=== PATIENT | male | born 1935 | race Caucasian/White ===

== ENCOUNTER → 2016-11-05 | Outpatient (CLI) | payer MEDICARE | LOC: MW.CHUR 08:00 | DX: C61 Malignant neoplasm of prostate (principal) | CPT/HCPCS: 96372; J9217 ==

== ENCOUNTER 2017-10-09 07:52 | Emergency (ER) | payer MEDICARE ==
[2017-10-09] MEDS ORDERED: Sodium Chloride 0.9% 500 ML IV SCH (08:15)
[2017-10-09] MEDS ORDERED: Sodium Chloride 0.9% 10 ML Syringe FLUSH PRN (08:15)
[2017-10-09] MEDS ORDERED: Ondansetron 4 MG/2 ML SDV IVPUSH ONE (08:15)
[2017-10-09] MEDS ORDERED: Sodium Chloride 0.9% 2.5 ML Syringe FLUSH PRN (08:15)
[2017-10-09] MEDS ORDERED: Pantoprazole 40 MG Vial IVPUSH ONE (08:15)
--- NOTE | 2017-10-09 08:19 | EDM.PDOC ---
ED HPI GENERAL MEDICAL PROBLEM - General Chief Complaint: Abdominal Pain Stated Complaint: FEELING ILL Time Seen by Provider: 10/09/17 08:07 - History of Present Illness INITIAL COMMENTS - FREE TEXT/NARRATIVE: HISTORY AND PHYSICAL: History of present illness: The patient is an 82-year-old male who follows with Dr. Arcenio Dennis at [facility] and has a history of diabetes hypothyroidism hypertension and presents with his with complaints of some small volume diarrhea that started yesterday morning and that improved with Imodium but then returned again this morning. According to and patient and he had small "squirts" of nava colored diarrhea but she gave him Imodium and he seemed to get better throughout the rest of the day yesterday. He slept fine and this morning at 4 AM he had several episodes again of the watery diarrhea which was small volume and they tell me it was not black or bloody. The patient now says that he has a "acid stomach" and he feels nauseated. He points to the epigastric and mid abdominal area as the site of his discomfort. He has no chest pain or shortness of breath no flank pain no urinary complaints. He has not vomited and he has not had any new food or exotic travel. Patient has a history of a bleeding ulcer back in the 1970s for which she had have surgery and he has an umbilical hernia which she has not had repaired. Patient says that since that time he has not had issues with ulcers and is on no medication for that. The tells me that he had some similar symptoms of an upset stomach and an acid stomach last month and he was seen at [facility] and he did a three-day Hemoccult testing which was negative and his hemoglobin was 11. No further testing was performed at that time. Review of systems: As per history of present illness and below otherwise all systems reviewed and negative. Past medical history: As per history of present illness and as reviewed below otherwise noncontributory. Surgical history: As per history of present illness and as reviewed below otherwise noncontributory. Social history: No reported history of drug or alcohol abuse. Family history: As per history of present illness and as reviewed below otherwise noncontributory. Physical exam: General: Well-developed well-nourished elderly man who is nontoxic and vital signs of been reviewed by me. Patient ambulated into the ED without distress HEENT: Atraumatic, normocephalic, pupils reactive, negative for conjunctival pallor or scleral icterus, mucous membranes moist, throat clear, neck supple, nontender, trachea midline. Lungs: Clear to auscultation, breath sounds equal bilaterally, chest nontender. Heart: S1S2, regular, negative for clicks, rubs, or JVD. Abdomen: Soft, nondistended, minimal epigastric tenderness on deep palpation without rebound or guarding. There is a large midline well-healed abdominal scar with a soft reducible umbilical hernia that is nontender. Bowel sounds are slightly hyperactive Negative for masses or hepatosplenomegaly. Negative for costovertebral tenderness. Pelvis: Stable nontender. Genitourinary: Deferred. Rectal: No masses were appreciated and there was scant stool in the vault so only mucus was tested and it was Hemoccult negative. I will have nursing state any diarrhea that the patient produces Extremities: Atraumatic, negative for cords or calf pain. Neurovascular unremarkable. Neuro: Awake, alert, oriented. Cranial nerves II through XII unremarkable. Cerebellum unremarkable. Motor and sensory unremarkable throughout. Exam nonfocal. Diagnostics: EKG CBC CMP amylase lipase INR UA H pylori testing CT scan of the abdomen and pelvis Therapeutics: Gentle IV fluids Protonix Zofran Patient states that he is feeling much improved and I discussed with him and his at bedside all testing results. I've gone over the positive H. pylori and the need for triple therapy with antibiotics and a PPI. I've also discussed with them the kidney stones most specifically the kidney stone Complex on the right side and the need to follow-up with Dr. Luis, whom he has has seen in the past. I advised him for close follow-up with his provider Dr. Monsivais in the clinic and reasons to return to the ED. Impression: Abdominal pain/H. pylori; incidental kidney stones stable Definitive disposition and diagnosis as appropriate pending reevaluation and review of above. Upper Abdomen Pain Score (Numeric/FACES): 3 - Related Data Allergies Allergy/AdvReac Type Severity Reaction Status Date / Time codeine Allergy Nausea and Verified 03/04/14 15:58 Vomiting Home Meds: Home Meds Aspirin [Alyse Chewable] 81 mg PO BEDTIME 03/04/14 [History] Lisinopril 2.5 mg PO DAILY 03/04/14 [History] metFORMIN [metFORMIN XR] 250 mg PO DAILY 03/04/14 [History] Past Medical History - Past Health History Medical/Surgical History: Denies Medical/Surgical History Social & Family History - Tobacco Use Smoking Status *Q: Never Smoker Second Hand Smoke Exposure: No - Alcohol Use Days Per Week of Alcohol Use: 0 - Recreational Drug Use Recreational Drug Use: No ED ROS GENERAL - Review of Systems Review Of Systems: ROS reveals no pertinent complaints other than HPI. ED EXAM, GENERAL - Physical Exam Exam: See Below (See dictation) Course - Vital Signs Last Recorded V/S: Last Vital Signs Temp 37.1 C 10/09/17 08:13 Pulse 74 10/09/17 08:13 Resp 18 10/09/17 08:13 BP 103/70 10/09/17 08:13 Pulse Ox 94 L 10/09/17 08:14 - Orders/Labs/Meds Orders: Active Orders 24 hr Category Date Time Status Cardiac Monitoring [RC] . DIRECTED Care 10/09/17 08:14 Active EKG Documentation Completion [RC] STAT Care 10/09/17 08:14 Active Hemoccult [Fecal Occult Blood Collection] [RC] Care 10/09/17 09:02 Active ASDIRECTED Oxygen Therapy, ED [RC] ASDIRECTED Care 10/09/17 08:14 Active Pulse Oximetry [RC] ASDIRECTED Care 10/09/17 08:14 Active Abdomen Pelvis w Cont [CT] Stat Exams 10/09/17 08:15 Taken Sodium Chloride 0.9% [Normal Saline] 500 ml Med 10/09/17 08:15 Active IV STAT Sodium Chloride 0.9% [Saline Flush] Med 10/09/17 08:15 Active 10 ml FLUSH ASDIRECTED PRN Sodium Chloride 0.9% [Saline Flush] Med 10/09/17 08:15 Active 2.5 ml FLUSH ASDIRECTED PRN Saline Lock Insert [OM.PC] Stat Oth 10/09/17 08:14 Ordered Medication Orders Sodium Chloride (Normal Saline) 500 mls @ 999 mls/hr IV STAT JEREMY Last Admin: 10/09/17 08:32 Dose: 999 mls/hr Sodium Chloride (Saline Flush) 10 ml FLUSH ASDIRECTED PRN PRN Reason: Keep Vein Open Last Admin: 10/09/17 08:33 Dose: 10 ml Sodium Chloride (Saline Flush) 2.5 ml FLUSH ASDIRECTED PRN PRN Reason: Keep Vein Open Last Admin: 10/09/17 08:33 Dose: 2.5 ml Labs: Laboratory Tests 10/09/17 10/09/17 10/09/17 Range/Units 08:27 08:27 08:27 WBC 13.52 H (4.0-11.0) K/uL RBC 4.37 L (4.50-5.90) M/uL Hgb 13.4 (13.0-17.0) g/dL Hct 41.3 (38.0-50.0) % MCV 94.5 (80.0-98.0) fL MCH 30.7 (27.0-32.0) pg MCHC 32.4 (31.0-37.0) g/dL RDW Std Deviation 49.4 (28.0-62.0) fl RDW Coeff of [place] 14 (11.0-15.0) % Plt Count 226 (150-400) K/uL MPV 9.00 (7.40-12.00) fL Neut % (Auto) 82.8 H (48.0-80.0) % Lymph % (Auto) 8.6 L (16.0-40.0) % [place] % (Auto) 6.7 (0.0-15.0) % Eos % (Auto) 1.7 (0.0-7.0) % Baso % (Auto) 0.2 (0.0-1.5) % Neut # (Auto) 11.2 H (1.4-5.7) K/uL Lymph # (Auto) 1.2 (0.6-2.4) K/uL [place] # (Auto) 0.9 H (0.0-0.8) K/uL Eos # (Auto) 0.2 (0.0-0.7) K/uL Baso # (Auto) 0.0 (0.0-0.1) K/uL Nucleated RBC % 0.0 /100WBC Nucleated RBCs # 0 K/uL INR 1.06 Sodium 143 (136-146) mmol/L Potassium 4.2 (3.5-5.1) mmol/L Chloride 113 H (98-110) mmol/L Carbon Dioxide 21 (21-31) mmol/L BUN 32 H (6.0-23.0) mg/dL Creatinine 1.1 (0.6-1.5) mg/dL Est Cr Clr Drug Dosing 50.09 mL/min Estimated GFR (MDRD) > 60.0 ml/min Glucose 144 H (60-110) mg/dL Calcium 9.1 (8.8-10.8) mg/dL Total Bilirubin 0.5 (0.1-1.5) mg/dL AST 15 (5-40) IU/L ALT 20 (8-54) IU/L Alkaline Phosphatase 68 (40-150) Total Protein 6.8 (6.0-8.0) g/dL Albumin 4.0 (3.4-4.8) g/dL Globulin 2.8 (2.0-3.5) g/dL Albumin/Globulin Ratio 1.4 (1.3-2.8) Amylase 33 (10-90) U/L Lipase 15 (7-80) U/L Urine Color Urine Appearance Urine pH (5.0-8.0) Ur Specific [place] (1.001-1.035) Urine Protein (NEGATIVE) mg/dL Urine Glucose (UA) (NEGATIVE) mg/dL Urine Ketones (NEGATIVE) mg/dL Urine Occult Blood (NEGATIVE) Urine Nitrite (NEGATIVE) Urine Bilirubin (NEGATIVE) Urine Urobilinogen (<2.0) EU/dL Ur Leukocyte Esterase (NEGATIVE) Urine RBC (0-2/HPF) Urine WBC (0-5/HPF) Ur Epithelial Cells (NONE-FEW) Urine Bacteria (NEGATIVE) Urine Mucus (NONE-MOD) H. pylori IgG Antibody (NEG) 10/09/17 10/09/17 Range/Units 08:27 09:58 WBC (4.0-11.0) K/uL RBC (4.50-5.90) M/uL Hgb (13.0-17.0) g/dL Hct (38.0-50.0) % MCV (80.0-98.0) fL MCH (27.0-32.0) pg MCHC (31.0-37.0) g/dL RDW Std Deviation (28.0-62.0) fl RDW Coeff of [place] (11.0-15.0) % Plt Count (150-400) K/uL MPV (7.40-12.00) fL Neut % (Auto) (48.0-80.0) % Lymph % (Auto) (16.0-40.0) % [place] % (Auto) (0.0-15.0) % Eos % (Auto) (0.0-7.0) % Baso % (Auto) (0.0-1.5) % Neut # (Auto) (1.4-5.7) K/uL Lymph # (Auto) (0.6-2.4) K/uL [place] # (Auto) (0.0-0.8) K/uL Eos # (Auto) (0.0-0.7) K/uL Baso # (Auto) (0.0-0.1) K/uL Nucleated RBC % /100WBC Nucleated RBCs # K/uL INR Sodium (136-146) mmol/L Potassium (3.5-5.1) mmol/L Chloride (98-110) mmol/L Carbon Dioxide (21-31) mmol/L BUN (6.0-23.0) mg/dL Creatinine (0.6-1.5) mg/dL Est Cr Clr Drug Dosing mL/min Estimated GFR (MDRD) ml/min Glucose (60-110) mg/dL Calcium (8.8-10.8) mg/dL Total Bilirubin (0.1-1.5) mg/dL AST (5-40) IU/L ALT (8-54) IU/L Alkaline Phosphatase (40-150) Total Protein (6.0-8.0) g/dL Albumin (3.4-4.8) g/dL Globulin (2.0-3.5) g/dL Albumin/Globulin Ratio (1.3-2.8) Amylase (10-90) U/L Lipase (7-80) U/L Urine Color DARK YELLOW Urine Appearance CLEAR Urine pH 5.5 (5.0-8.0) Ur Specific [place] 1.025 (1.001-1.035) Urine Protein NEGATIVE (NEGATIVE) mg/dL Urine Glucose (UA) NEGATIVE (NEGATIVE) mg/dL Urine Ketones NEGATIVE (NEGATIVE) mg/dL Urine Occult Blood NEGATIVE (NEGATIVE) Urine Nitrite NEGATIVE (NEGATIVE) Urine Bilirubin NEGATIVE (NEGATIVE) Urine Urobilinogen 0.2 (<2.0) EU/dL Ur Leukocyte Esterase NEGATIVE (NEGATIVE) Urine RBC 0-2 (0-2/HPF) Urine WBC 0-2 (0-5/HPF) Ur Epithelial Cells OCCASIONAL (NONE-FEW) Urine Bacteria FEW (NEGATIVE) Urine Mucus MODERATE (NONE-MOD) H. pylori IgG Antibody POSITIVE H (NEG) Meds: Medications Generic Name Dose Route Start Last Admin Trade Name Freq PRN Reason Stop Dose Admin Sodium Chloride 500 mls @ 999 mls/hr 10/09/17 08:15 10/09/17 08:32 Normal Saline IV 999 mls/hr STAT JEREMY Administration Sodium Chloride 10 ml 10/09/17 08:15 10/09/17 08:33 Saline Flush FLUSH 10 ml ASDIRECTED PRN Administration Keep Vein Open Sodium Chloride 2.5 ml 10/09/17 08:15 10/09/17 08:33 Saline Flush FLUSH 2.5 ml ASDIRECTED PRN Administration Keep Vein Open Discontinued Medications Generic Name Dose Route Start Last Admin Trade Name Freq PRN Reason Stop Dose Admin Iopamidol 95 ml 10/09/17 09:09 10/09/17 09:11 Isovue Multipack-370 (76%) IVPUSH 10/09/17 09:10 95 ml ONETIME STA Administration Ondansetron HCl 4 mg 10/09/17 08:15 10/09/17 08:32 Zofran IVPUSH 10/09/17 08:16 4 mg ONETIME ONE Administration Pantoprazole Sodium 80 mg 10/09/17 08:15 10/09/17 08:32 Protonix Iv IVPUSH 10/09/17 08:16 80 mg .BOLUS ONE Administration Departure - Departure Time of Disposition: 10:44 Disposition: Home, Self-Care 01 Condition: Good Clinical Impression: H. pylori infection Abdominal pain Qualifiers: Abdominal location: upper abdomen, unspecified Qualified Code(s): R10.10 - Upper abdominal pain, unspecified - Discharge Information Referrals: Arcenio Monsivais MD [Primary Care Provider] - Forms: ED Department Discharge Additional Instructions: The following information is given to patients seen in the emergency department who are being discharged to home. This information is to outline your options for follow-up care. We provide all patients seen in our emergency department with a follow-up referral. The need for follow-up, as well as the timing and circumstances, are variable depending upon the specifics of your emergency department visit. If you don't have a primary care physician on staff, we will provide you with a referral. We always advise you to contact your personal physician following an emergency department visit to inform them of the circumstance of the visit and for follow-up with them and/or the need for any referrals to a consulting specialist. The emergency department will also refer you to a specialist when appropriate. This referral assures that you have the opportunity for followup care with a specialist. All of these measure are taken in an effort to provide you with optimal care, which includes your followup. Under all circumstances we always encourage you to contact your private physician who remains a resource for coordinating your care. When calling for followup care, please make the office aware that this follow-up is from your recent emergency room visit. If for any reason you are refused follow-up, please contact the [facility] emergency department at and ask to speak to the emergency department charge nurse. [address] [address] [facility] Primary care- Internal Medicine and Family [facility]ctice [address] [place] [id number] [facility] Specialty Care-Urology [address] [place] [id number] Please call and follow-up with Dr. Monsivais this week for reevaluation further care and if you're unable to see him please contact one of our clinic providers. Please also contact and make a follow-up appointment with Dr. Luis to reevaluate and treat your kidney stones as we discussed. Return to ER as needed and as discussed. Please take all medications as prescribed and avoid caffeinated products. - My Orders Last 24 Hours: My Active Orders 10/09/17 08:14 Cardiac Monitoring [RC] . DIRECTED EKG Documentation Completion [RC] STAT Oxygen Therapy, ED [RC] ASDIRECTED Pulse Oximetry [RC] ASDIRECTED Saline Lock Insert [OM.PC] Stat 10/09/17 08:15 Abdomen Pelvis w Cont [CT] Stat Sodium Chloride 0.9% [Normal Saline] 500 ml IV STAT Sodium Chloride 0.9% [Saline Flush] 10 ml FLUSH ASDIRECTED PRN Sodium Chloride 0.9% [Saline Flush] 2.5 ml FLUSH ASDIRECTED PRN 10/09/17 09:02 Hemoccult [Fecal Occult Blood Collection] [RC] ASDIRECTED - Assessment/Plan Last 24 Hours: My Active Orders 10/09/17 08:14 Cardiac Monitoring [RC] . DIRECTED EKG Documentation Completion [RC] STAT Oxygen Therapy, ED [RC] ASDIRECTED Pulse Oximetry [RC] ASDIRECTED Saline Lock Insert [OM.PC] Stat 10/09/17 08:15 Abdomen Pelvis w Cont [CT] Stat Sodium Chloride 0.9% [Normal Saline] 500 ml IV STAT Sodium Chloride 0.9% [Saline Flush] 10 ml FLUSH ASDIRECTED PRN Sodium Chloride 0.9% [Saline Flush] 2.5 ml FLUSH ASDIRECTED PRN 10/09/17 09:02 Hemoccult [Fecal Occult Blood Collection] [RC] ASDIRECTED
[2017-10-09 09:01] LABS: CHLORIDE,CL 113 mmol/L (98-110); SODIUM,NA 143 mmol/L (136-146)
[2017-10-09] MEDS ORDERED: Iopamidol 755 MG/ML 200 ML Multipack Bottle IVPUSH STA (09:09)
--- NOTE | 2017-10-11 14:03 | CT ---
EXAM DATE: 10/09/17 PATIENT'S AGE: 82 Patient: MARCI KWOK Facility: [place], [place] Site . Site : [id number] Study: CT Abdomen/Pelvis [id number]/3/2018 9:52:12 AM Ordering Physician: Murtaza Chase Final Report: INDICATION: Abdominal pain. COMPARISON: CT abdomen and pelvis without intravenous contrast 07/31/2014. TECHNIQUE: CT abdomen and pelvis with intravenous contrast; no oral contrast; coronal and sagittal reformats. FINDINGS: Fibrotic changes both lung bases stable in appearance. Normal size cardiac silhouette without any evidence of pericardial effusion. No evidence of pleural effusion. No abnormal intra pulmonary nodular densities are identified. No focal hepatic or splenic pathology. 1 cm low density identified in the tail of the pancreas as noted on slice 34 of series 201; rule out IPMN. This finding was probably present on the previous CT. MRCP is suggested for further evaluation. Gallbladder is unremarkable. No adrenal pathology. Symmetric perfusion of both the kidneys. Peripelvic cysts identified in the left kidney. Small cyst right kidney. Tiny nonobstructing renal calculi lower pole calyx left kidney without any interval change. Previously noted kidney stone in the right mid posterior calyx is not seen on the current study. 6.8 x 4 mm stone complex identified in the right distal ureter about 2 cm from the ureterovesical junction without any hydronephrosis or hydroureter at this time. Diverticulosis sigmoid colon without any CT evidence of diverticulitis or abscess. No retroperitoneal lymphadenopathy. No evidence of abdominal or pelvic ascites. Normal appendix. Splenic vein, superior mesenteric vein and the portal vein are unremarkable. Impression: 6.8 x 4 mm stone complex identified in the right distal ureter 2 cm from the ureterovesical junction without any hydronephrosis or hydroureter. 1. Previously noted stone from the right kidney is probably in the right distal ureter at this time. 2. There was a small stone in the right distal ureter on the previous study and it probably still is present. 3. Nonobstructing renal calculi left kidney. 4. Benign cyst right kidney. 5. Small peripelvic cyst left kidney. 6. 1 cm low-density tail of the pancreas; rule out IPMN. Please note that all CT scans at this facility use dose modulation, iterative reconstruction, and/or weight-based dosing when appropriate to reduce radiation dose to as low as reasonably achievable. Dictated by Lorena Maravilla MD @ Oct 09 2017 9:53AM (Electronic Signature) Report Signed by Proxy. MTDD
== END 2017-10-09 11:06 | disposition home or self-care (01) ==
LOC: MW.ED 07:52
DX: R10.10 Upper abdominal pain, unspecified (principal); B96.81 Helicobacter pylori [H. pylori] as the cause of diseases classified elsewhere; I10 Essential (primary) hypertension; E03.9 Hypothyroidism, unspecified; E11.9 Type 2 diabetes mellitus without complications; Z88.5 Allergy status to narcotic agent; Z79.84 Long term (current) use of oral hypoglycemic drugs; Z79.899 Other long term (current) drug therapy
CPT/HCPCS: 36415; 74177; 80053; 81001; 82150; 83690; 85025; 85610; 86677; 93005; 96361; 96374; 96375; 99284; C9113; J2405; J7040; Q9967

== ENCOUNTER 2019-05-17 09:54 | Observation (INO) | payer MEDICARE ==
[2019-05-17] MEDS ORDERED: Sodium Chloride 0.9% 10 ML SDV IV PRN (09:56)
[2019-05-17] MEDS ORDERED: Sodium Chloride 0.9% 10 ML Syringe FLUSH PRN (09:56)
[2019-05-17] MEDS ORDERED: Sodium Chloride 0.9% 2.5 ML Syringe FLUSH PRN (09:56)
--- NOTE | 2019-05-17 09:58 | EDM.PDOC ---
ED HPI GENERAL MEDICAL PROBLEM - General Chief Complaint: Neuro Symptoms/Deficits Stated Complaint: fell, weakness Time Seen by Provider: 05/17/19 09:54 Source of Information: Reports: Patient History Limitations: Reports: No Limitations - History of Present Illness INITIAL COMMENTS - FREE TEXT/NARRATIVE: History of present illness: []Patient was brought in this morning by ambulance as a stroke code with generalized weakness and difficulty with speech. He fell in his room sometime during the first week of March and hit the back of his neck on the wall since then he has had the sensation of water in his shoes and grease on his fingertips. Review of systems: As per history of present illness and below otherwise all systems reviewed and negative. Past medical history: As per history of present illness and as reviewed below otherwise noncontributory. Surgical history: As per history of present illness and as reviewed below otherwise noncontributory. Social history: No reported history of drug or alcohol abuse. Family history: As per history of present illness and as reviewed below otherwise noncontributory. Physical exam: General: Well developed, well nourished in NAD HEENT: Atraumatic, normocephalic, pupils reactive, negative for conjunctival pallor or scleral icterus, mucous membranes moist, throat clear, neck supple, no step-offs, nontender, trachea midline. Lungs: Clear to auscultation, breath sounds equal bilaterally, chest nontender. Heart: S1S2, regular, negative for clicks, rubs, or JVD. Abdomen: NABS, Soft, nondistended, nontender. Negative for masses or hepatosplenomegaly. Negative for costovertebral tenderness. Pelvis: Stable nontender. Genitourinary: Deferred. Rectal: Deferred. Extremities: Atraumatic, negative for cords or calf pain. Neurovascular unremarkable. Neuro: Awake, alert, . Cranial nerves II through XII unremarkable. Cerebellum unremarkable. Generalized weakness. Exam nonfocal. Reflexes 1+ upper extremities bilaterally Skin:warm and dry NIH=0 Diagnostics: ct head-neg, CBC, chemistry, troponin but TSH, MRI cervical spine ordered rule out cord compression Therapeutics: Observed ED Course: Stable Impression: Generalized weakness Prescriptions: None Plan: Admit Definitive disposition and diagnosis as appropriate pending reevaluation and review of above. - Related Data Allergies Allergy/AdvReac Type Severity Reaction Status Date / Time codeine Allergy Mild Nausea and Verified 05/17/19 12:13 Vomiting Home Meds: Home Meds Aspirin [Alyse Chewable] 81 mg PO BEDTIME 03/04/14 [History] Lisinopril 2.5 mg PO DAILY 03/04/14 [History] metFORMIN HCl [Metformin HCl] 250 mg PO DAILY 05/17/19 [History] Past Medical History - Past Health History Medical/Surgical History: Denies Medical/Surgical History Social & Family History - Caffeine Use Caffeine Use: Reports: Coffee ED ROS GENERAL - Review of Systems Review Of Systems: See Below ED EXAM, NEURO - Physical Exam Exam: See Below Course - Vital Signs Last Recorded V/S: Last Vital Signs Temp 97.4 F 05/17/19 11:40 Pulse 71 05/17/19 11:40 Resp 16 05/17/19 11:40 BP 131/66 05/17/19 11:40 Pulse Ox 99 05/17/19 12:00 - Orders/Labs/Meds Orders: Active Orders 24 hr Category Date Time Status Patient Status [ADT] Stat ADT 05/17/19 11:16 Active Assess Neurological Status [RC] ASDIRECTED Care 05/17/19 09:56 Active Bedrest [RC] ASDIRECTED Care 05/17/19 09:56 Active Blood Glucose Check, Bedside [RC] TIDMEALS Care 05/17/19 11:15 Active Cardiac Monitoring [RC] . DIRECTED Care 05/17/19 09:56 Active EKG Documentation Completion [RC] STAT Care 05/17/19 09:56 Active Initiate Acute Stroke Protocol [RC] STAT Care 05/17/19 09:56 Active Intake and Output [RC] Q12H Care 05/17/19 11:13 Active NIH Stroke Scale [RC] ASDIRECTED Care 05/17/19 09:56 Active Nursing Bedside Swallow Screen [RC] ASDIRECTED Care 05/17/19 09:56 Active Orthostatic Vital Signs [RC] DAILY Care 05/17/19 11:13 Active Oxygen Therapy [RC] ASDIRECTED Care 05/17/19 09:56 Active Stroke Education, General [RC] Click to Edit Care 05/17/19 09:56 Active Telemetry Monitoring [Cardiac Monitoring] [RC] . Care 05/17/19 11:13 Active DIRECTED Vital Signs [RC] Q15M Care 05/17/19 09:56 Active Vital Signs [RC] Q4H Care 05/17/19 11:13 Active OT Evaluation and Treatment [CONS] Stat Cons 05/17/19 11:13 Active PT Evaluation and Treatment [CONS] Stat Cons 05/17/19 11:13 Active [place] [employer] Diet [DIET] Diet 05/17/19 Dinner Active Cervical Spine Comp w wo Cont [MR] Stat Exams 05/17/19 11:14 Ordered UA W/MICROSCOPIC [URIN] Stat Lab 05/17/19 10:24 Ordered Acetaminophen [Tylenol] Med 05/17/19 11:15 Active 650 mg PO Q4H PRN Insulin Aspart [NovoLOG] Med 05/17/19 11:30 Active See Protocol SUBCUT TIDAC Ondansetron [Zofran] Med 05/17/19 11:15 Active 4 mg IVPUSH Q4H PRN Sodium Chloride 0.9% [Normal Saline] Med 05/17/19 09:56 Active 10 ml IV ASDIRECTED PRN Sodium Chloride 0.9% [Saline Flush] Med 05/17/19 09:56 Active 10 ml FLUSH ASDIRECTED PRN Sodium Chloride 0.9% [Saline Flush] Med 05/17/19 09:56 Active 2.5 ml FLUSH ASDIRECTED PRN Peripheral IV Insertion Adult [OM.PC] Stat Oth 05/17/19 09:56 Ordered Peripheral IV Insertion Adult [OM.PC] Stat Oth 05/17/19 09:56 Ordered Resuscitation Status Stat Resus Stat 05/17/19 11:13 Ordered Medication Orders Acetaminophen (Tylenol) 650 mg PO Q4H PRN PRN Reason: Pain/Fever Aspirin (Aspirin) 81 mg PO BEDTIME JEREMY Insulin Aspart (Novolog) 0 unit SUBCUT TIDAC JEREMY; Protocol Last Admin: 05/17/19 18:10 Dose: Not Given Admin: 05/17/19 13:40 Dose: Not Given Lisinopril (Prinivil) 2.5 mg PO DAILY JER[facility] Ondansetron HCl (Zofran) 4 mg IVPUSH Q4H PRN PRN Reason: Nausea/Vomiting Sodium Chloride (Saline Flush) 10 ml FLUSH ASDIRECTED PRN PRN Reason: Keep Vein Open Sodium Chloride (Saline Flush) 2.5 ml FLUSH ASDIRECTED PRN PRN Reason: Keep Vein Open Sodium Chloride (Normal Saline) 10 ml IV ASDIRECTED PRN PRN Reason: IV Use Labs: Laboratory Tests 05/17/19 05/17/19 05/17/19 Range/Units 10:00 10:00 10:00 WBC 9.30 (4.0-11.0) K/uL RBC 4.35 L (4.50-5.90) M/uL Hgb 13.7 (13.0-17.0) g/dL Hct 41.8 (38.0-50.0) % MCV 96.1 (80.0-98.0) fL MCH 31.5 (27.0-32.0) pg MCHC 32.8 (31.0-37.0) g/dL RDW Std Deviation 50.3 (28.0-62.0) fl RDW Coeff of [place] 14 (11.0-15.0) % Plt Count 240 (150-400) K/uL MPV 8.80 (7.40-12.00) fL Neut % (Auto) 61.5 (48.0-80.0) % Lymph % (Auto) 24.0 (16.0-40.0) % [place] % (Auto) 7.8 (0.0-15.0) % Eos % (Auto) 6.3 (0.0-7.0) % Baso % (Auto) 0.4 (0.0-1.5) % Neut # (Auto) 5.7 (1.4-5.7) K/uL Lymph # (Auto) 2.2 (0.6-2.4) K/uL [place] # (Auto) 0.7 (0.0-0.8) K/uL Eos # (Auto) 0.6 (0.0-0.7) K/uL Baso # (Auto) 0.0 (0.0-0.1) K/uL Nucleated RBC % 0.0 /100WBC Nucleated RBCs # 0 K/uL INR 1.03 APTT 24.3 (18.6-31.3) SEC Sodium 142 (136-148) mmol/L Potassium 4.3 (3.5-5.1) mmol/L Chloride 107 (98-107) mmol/L Carbon Dioxide 25.4 (21.0-32.0) mmol/L BUN 25 H (7.0-18.0) mg/dL Creatinine 1.0 (0.8-1.3) mg/dL Est Cr Clr Drug Dosing 56.78 mL/min Estimated GFR (MDRD) > 60.0 ml/min Glucose 109 H (74-106) mg/dL Calcium 8.4 L (8.5-10.1) mg/dL Total Bilirubin 0.6 (0.2-1.0) mg/dL AST 17 (15-37) IU/L ALT 30 (14-63) IU/L Alkaline Phosphatase 83 (46-116) U/L Troponin I < 0.050 (0.000-0.056) ng/mL Total Protein 6.2 L (6.4-8.2) g/dL Albumin 3.3 L (3.4-5.0) g/dL Globulin 2.9 (2.6-4.0) g/dL Albumin/Globulin Ratio 1.1 (0.9-1.6) TSH 3rd Generation 1.27 (0.36-3.74) uIU/mL Meds: Medications Generic Name Dose Route Start Last Admin Trade Name Freq PRN Reason Stop Dose Admin Acetaminophen 650 mg 05/17/19 11:15 Tylenol PO Q4H PRN Pain/Fever Aspirin 81 mg 05/17/19 21:00 Aspirin PO BEDTIME [facility] Insulin Aspart 0 unit 05/17/19 11:30 05/17/19 18:10 Novolog SUBCUT Not Given TIDAC [facility] Protocol Lisinopril 2.5 mg 05/18/19 09:00 Prinivil PO DAILY [facility] Ondansetron HCl 4 mg 05/17/19 11:15 Zofran IVPUSH Q4H PRN Nausea/Vomiting Sodium Chloride 10 ml 05/17/19 09:56 Saline Flush FLUSH ASDIRECTED PRN Keep Vein Open Sodium Chloride 2.5 ml 05/17/19 09:56 Saline Flush FLUSH ASDIRECTED PRN Keep Vein Open Sodium Chloride 10 ml 05/17/19 09:56 Normal Saline IV ASDIRECTED PRN IV Use Discontinued Medications Generic Name Dose Route Start Last Admin Trade Name Freq PRN Reason Stop Dose Admin Gadobenate Dimeglumine 16 ml 05/17/19 13:34 05/17/19 13:35 Multihance IVPUSH 05/17/19 13:35 16 ml ONETIME STA Administration Departure - Departure Time of Disposition: 11:30 Disposition: Refer to Observation Condition: Good Clinical Impression: Generalized weakness, Blunt trauma of neck - Discharge Information - My Orders Last 24 Hours: My Active Orders 05/17/19 09:56 Assess Neurological Status [RC] ASDIRECTED Bedrest [RC] ASDIRECTED Cardiac Monitoring [RC] . DIRECTED EKG Documentation Completion [RC] STAT Initiate Acute Stroke Protocol [RC] STAT NIH Stroke Scale [RC] ASDIRECTED Nursing Bedside Swallow Screen [RC] ASDIRECTED Oxygen Therapy [RC] ASDIRECTED Stroke Education, General [RC] Click to Edit Vital Signs [RC] Q15M Sodium Chloride 0.9% [Normal Saline] 10 ml IV ASDIRECTED PRN Sodium Chloride 0.9% [Saline Flush] 10 ml FLUSH ASDIRECTED PRN Sodium Chloride 0.9% [Saline Flush] 2.5 ml FLUSH ASDIRECTED PRN Peripheral IV Insertion Adult [OM.PC] Stat Peripheral IV Insertion Adult [OM.PC] Stat 05/17/19 10:24 UA W/MICROSCOPIC [URIN] Stat 05/17/19 11:14 Cervical Spine Comp w wo Cont [MR] Stat 05/17/19 11:16 Patient Status [ADT] Stat - Assessment/Plan Last 24 Hours: My Active Orders 05/17/19 09:56 Assess Neurological Status [RC] ASDIRECTED Bedrest [RC] ASDIRECTED Cardiac Monitoring [RC] . DIRECTED EKG Documentation Completion [RC] STAT Initiate Acute Stroke Protocol [RC] STAT NIH Stroke Scale [RC] ASDIRECTED Nursing Bedside Swallow Screen [RC] ASDIRECTED Oxygen Therapy [RC] ASDIRECTED Stroke Education, General [RC] Click to Edit Vital Signs [RC] Q15M Sodium Chloride 0.9% [Normal Saline] 10 ml IV ASDIRECTED PRN Sodium Chloride 0.9% [Saline Flush] 10 ml FLUSH ASDIRECTED PRN Sodium Chloride 0.9% [Saline Flush] 2.5 ml FLUSH ASDIRECTED PRN Peripheral IV Insertion Adult [OM.PC] Stat Peripheral IV Insertion Adult [OM.PC] Stat 05/17/19 10:24 UA W/MICROSCOPIC [URIN] Stat 05/17/19 11:14 Cervical Spine Comp w wo Cont [MR] Stat 05/17/19 11:16 Patient Status [ADT] Stat
--- NOTE | 2019-05-17 10:24 | CT ---
INDICATION: Patient presents with weakness and numbness within the finger tips. Patient previously fell on 03/22/2019. COMPARISON: none TECHNIQUE: A CT volumetric acquisition was performed of the brain without IV contrast. FINDINGS: There is no evidence of a subdural or epidural hematoma. There is no evidence of subarachnoid hemorrhage or intraparenchymal bleeding. The CT images reveal a normal appearance of the cerebral ventricles and basal cisterns. There is no evidence of localized tissue infarction or mass effect. There is normal garcia white matter differentiation. The mastoid air cells and middle ear cavities are clear. The calvarium appears intact. There is normal aeration of the visualized paranasal sinuses. IMPRESSION: No evidence of intracranial hemorrhage, infarct or mass effect. Note: I discussed the exam findings with Dr. Quiroga at the completion of the study on 05/17/2019 at 10:20 a.m. Please note that all CT scans at this facility use dose modulation, iterative reconstruction, and/or weight-based dosing when appropriate to reduce radiation dose to as low as reasonably achievable. Dictated by Zackery Kasper MD @ May 17 2019 10:15AM Signed by Dr. Zackery Kasper @ May 17 2019 10:23AM
--- NOTE | 2019-05-17 11:06 | PCM.HP.2 ---
<Radha Deutsch - Last Filed: 05/17/19 13:39> H&P History of Present Illness - General Date of Service: 05/17/19 - History of Present Illness Initial Comments - Free Text/Narative: The patient is a 84 year old male who presents today with dizziness and weakness for the past week but worse this morning. Reports fell out of bed in March, hitting his head and neck but did not experience LOC. Since the fall he has had neck pressure when pressure applies, like laying on the pillow, with associated numbness/tingling in fingers bilaterally. 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 He has not fallen since. He reports the dizziness is actually more lightheadedness and worse when getting up to fast. He denies weakness in the extremities, facial droop, or slurred speech. Denies fever/chills, headache, vision changes, syncope, chest pain, shortness of breath , abdominal pain, nausea/vomiting, constipation/diarrhea. Denies cardiac history , TIA, stroke, or lung issues. In the ER, stroke code was called. Work up included negative CT head. Lab work showed no anemia or leukocytosis. PT/INR wnl, trop negative, TSH wnl, and CMP did not show any significant electrolyte abn. EKG showed normal sinus rhythm without ST changes. PCP- Dr. Arcenio Monsivais - Related Data Allergies/Adverse Reactions: Allergies Allergy/AdvReac Type Severity Reaction Status Date / Time codeine Allergy Mild Nausea and Verified 05/17/19 12:13 Vomiting Home Medications: Home Meds Aspirin [Alyse Chewable] 81 mg PO BEDTIME 03/04/14 [History] Lisinopril 2.5 mg PO DAILY 03/04/14 [History] metFORMIN HCl [Metformin HCl] 250 mg PO DAILY 05/17/19 [History] Past Medical History - Past Health History Medical/Surgical History: Denies Medical/Surgical History HEENT History: Reports: None Respiratory History: Reports: None Gastrointestinal History: Reports: None Genitourinary History: Reports: Prostate Disorder Musculoskeletal History: Reports: None Neurological History: Reports: None Psychiatric History: Reports: None Endocrine/Metabolic History: Reports: Diabetes, Type II Hematologic History: Reports: None Immunologic History: Reports: None Oncologic (Cancer) History: Reports: None, Prostate Dermatologic History: Reports: None - Past Surgical History Head Surgeries/Procedures: Reports: None HEENT Surgical History: Reports: None Cardiovascular Surgical History: Reports: None Respiratory Surgical History: Reports: None GI Surgical History: Reports: None Male Surgical History: Reports: None Endocrine Surgical History: Reports: None Neurological Surgical History: Reports: None Musculoskeletal Surgical History: Reports: None Oncologic Surgical History: Reports: None Dermatological Surgical History: Reports: None Social & Family History - Family History Family Medical History: Noncontributory - Caffeine Use Caffeine Use: Reports: Coffee H&P Review of Systems - Review of Systems: Review Of Systems: See Below General: Reports: Weakness. Denies: Fever, Chills HEENT: Reports: No Symptoms Pulmonary: Reports: No Symptoms Cardiovascular: Reports: No Symptoms Gastrointestinal: Reports: No Symptoms Genitourinary: Reports: No Symptoms Musculoskeletal: Reports: No Symptoms Skin: Reports: No Symptoms Psychiatric: Reports: No Symptoms Neurological: Reports: Dizziness, Numbness, Tingling. Denies: Syncope, Trouble Speaking Hematologic/Lymphatic: Reports: No Symptoms Immunologic: Reports: No Symptoms Exam - Exam Exam: See Below - Vital Signs Vital Signs: Last Vital Signs Temp 97.0 F 05/17/19 09:55 Pulse 75 05/17/19 09:55 Resp 18 05/17/19 09:55 BP 132/75 05/17/19 09:55 Pulse Ox 95 05/17/19 09:55 Weight: 79.379 kg - Exam General: Alert, Oriented, Cooperative HEENT: Conjunctiva Clear, EOMI, Mucosa Moist & [place], Posterior Pharynx Clear, Pupils Equal, Pupils Reactive Neck: Supple Lungs: Clear to Auscultation, Normal Respiratory Effort Cardiovascular: Regular Rate, Regular Rhythm GI/Abdominal Exam: Normal Bowel Sounds, Soft, Non-Tender, No Distention Extremities: No Pedal Edema Skin: Warm, Dry, Intact Neurological: Cranial Nerves Intact, Strength Equal Bilateral, Normal Speech, Normal Tone Neuro Extensive - Mental Status: Alert, Oriented x3, Normal Mood/Affect Psychiatric: Alert, Normal Affect, Normal Mood - Patient Data Lab Results Last 24 hrs: Laboratory Results - last 24 hr 05/17/19 05/17/19 Range/Units 10:00 10:00 WBC 9.30 (4.0-11.0) K/uL RBC 4.35 L (4.50-5.90) M/uL Hgb 13.7 (13.0-17.0) g/dL Hct 41.8 (38.0-50.0) % MCV 96.1 (80.0-98.0) fL MCH 31.5 (27.0-32.0) pg MCHC 32.8 (31.0-37.0) g/dL RDW Std Deviation 50.3 (28.0-62.0) fl RDW Coeff of [place] 14 (11.0-15.0) % Plt Count 240 (150-400) K/uL MPV 8.80 (7.40-12.00) fL Neut % (Auto) 61.5 (48.0-80.0) % Lymph % (Auto) 24.0 (16.0-40.0) % [place] % (Auto) 7.8 (0.0-15.0) % Eos % (Auto) 6.3 (0.0-7.0) % Baso % (Auto) 0.4 (0.0-1.5) % Neut # (Auto) 5.7 (1.4-5.7) K/uL Lymph # (Auto) 2.2 (0.6-2.4) K/uL [place] # (Auto) 0.7 (0.0-0.8) K/uL Eos # (Auto) 0.6 (0.0-0.7) K/uL Baso # (Auto) 0.0 (0.0-0.1) K/uL Nucleated RBC % 0.0 /100WBC Nucleated RBCs # 0 K/uL INR 1.03 APTT 24.3 (18.6-31.3) SEC Result Diagrams: 05/17/19 10:00 05/17/19 10:00 - Problem List (1) Lightheadedness SNOMED Code(s): 742461148 ICD Code: R42 - DIZZINESS AND GIDDINESS Status: Acute Current Visit: Yes (2) Fall at home SNOMED Code(s): 55116193 ICD Code: W19.XXXA - UNSPECIFIED FALL, INITIAL ENCOUNTER; Y92.009 - UNSP PLACE IN [facility] Status: Acute Current Visit: Yes (3) Cervical radicular pain SNOMED Code(s): 760311282 ICD Code: M54.12 - RADICULOPATHY, CERVICAL REGION Status: Acute Current Visit: Yes (4) Weakness SNOMED Code(s): 33166947 ICD Code: R53.1 - WEAKNESS Status: Acute Current Visit: Yes Problem List Initiated/Reviewed/Updated: Yes Orders Last 24hrs: Active Orders 24 hr Category Date Time Status Assess Neurological Status [RC] ASDIRECTED Care 05/17/19 09:56 Active Bedrest [RC] ASDIRECTED Care 05/17/19 09:56 Active Cardiac Monitoring [RC] . DIRECTED Care 05/17/19 09:56 Active EKG Documentation Completion [RC] STAT Care 05/17/19 09:56 Active Height and Weight [RC] UPON Care 05/17/19 09:56 Active Initiate Acute Stroke Protocol [RC] STAT Care 05/17/19 09:56 Active NIH Stroke Scale [RC] ASDIRECTED Care 05/17/19 09:56 Active Nursing Bedside Swallow Screen [RC] ASDIRECTED Care 05/17/19 09:56 Active Oxygen Therapy [RC] ASDIRECTED Care 05/17/19 09:56 Active Stroke Education, General [RC] Click to Edit Care 05/17/19 09:56 Active Vital Signs [RC] Q15M Care 05/17/19 09:56 Active COMPREHENSIVE METABOLIC PN,CMP [CHEM] Stat Lab 05/17/19 10:00 Received TROPONIN I [CHEM] Stat Lab 05/17/19 10:00 Received TSH [CHEM] Stat Lab 05/17/19 10:00 Received UA W/MICROSCOPIC [URIN] Stat Lab 05/17/19 10:24 Ordered Sodium Chloride 0.9% [Normal Saline] Med 05/17/19 09:56 Active 10 ml IV ASDIRECTED PRN Sodium Chloride 0.9% [Saline Flush] Med 05/17/19 09:56 Active 10 ml FLUSH ASDIRECTED PRN Sodium Chloride 0.9% [Saline Flush] Med 05/17/19 09:56 Active 2.5 ml FLUSH ASDIRECTED PRN Peripheral IV Insertion Adult [OM.PC] Stat Oth 05/17/19 09:56 Ordered Peripheral IV Insertion Adult [OM.PC] Stat Oth 05/17/19 09:56 Ordered Medication Orders Sodium Chloride (Saline Flush) 10 ml FLUSH ASDIRECTED PRN PRN Reason: Keep Vein Open Sodium Chloride (Saline Flush) 2.5 ml FLUSH ASDIRECTED PRN PRN Reason: Keep Vein Open Sodium Chloride (Normal Saline) 10 ml IV ASDIRECTED PRN PRN Reason: IV Use Assessment/Plan Comment:: 1. Admit for observation 2. Code status- full 3. Vitals per routine 4. I/Os per routine 5. Diet- Diabetic 6. DVT prophylaxis with lovenox 7.neck pain with numbness/tingling of bilateral fingers s/p fall at home- head CT negative, will proceed with MRI of cervical spine wo contrast 8. Lightheadedness and weakness- will get orthostatic vitals, PT/OT eval and treat, monitor on telemetry 9. DMII- hold metformin, accucheck and sliding scale insulin. Discussed with patient and about their thoughts on [facility] for rehab if necessary. They do not want to go to [facility]. They are open to home health if deemed necessary. <Wang Mann - Last Filed: 05/17/19 17:17> H&P History of Present Illness - General Admit Problem/Dx: Admission Diagnosis/Problem Admission Diagnosis/Problem Weakness I have seen and examined the patient independently of manager of medical, Dr. Get DO. I have reviewed and agree with the plan of care as outlined for this patient by her. I have discussed the case with her. Please see orders. Exam - Vital Signs Vital Signs: Last Vital Signs Temp 36.3 C 05/17/19 11:40 Pulse 71 05/17/19 11:40 Resp 16 05/17/19 11:40 BP 131/66 05/17/19 11:40 Pulse Ox 99 05/17/19 12:00 Orthostatic Blood Pressure [ 124/71 Sitting] Orthostatic Blood Pressure [ 136/65 Supine] - Patient Data Lab Results Last 24 hrs: Laboratory Results - last 24 hr 05/17/19 05/17/19 05/17/19 Range/Units 10:00 10:00 10:00 WBC 9.30 (4.0-11.0) K/uL RBC 4.35 L (4.50-5.90) M/uL Hgb 13.7 (13.0-17.0) g/dL Hct 41.8 (38.0-50.0) % MCV 96.1 (80.0-98.0) fL MCH 31.5 (27.0-32.0) pg MCHC 32.8 (31.0-37.0) g/dL RDW Std Deviation 50.3 (28.0-62.0) fl RDW Coeff of [place] 14 (11.0-15.0) % Plt Count 240 (150-400) K/uL MPV 8.80 (7.40-12.00) fL Neut % (Auto) 61.5 (48.0-80.0) % Lymph % (Auto) 24.0 (16.0-40.0) % [place] % (Auto) 7.8 (0.0-15.0) % Eos % (Auto) 6.3 (0.0-7.0) % Baso % (Auto) 0.4 (0.0-1.5) % Neut # (Auto) 5.7 (1.4-5.7) K/uL Lymph # (Auto) 2.2 (0.6-2.4) K/uL [place] # (Auto) 0.7 (0.0-0.8) K/uL Eos # (Auto) 0.6 (0.0-0.7) K/uL Baso # (Auto) 0.0 (0.0-0.1) K/uL Nucleated RBC % 0.0 /100WBC Nucleated RBCs # 0 K/uL INR 1.03 APTT 24.3 (18.6-31.3) SEC Sodium 142 (136-148) mmol/L Potassium 4.3 (3.5-5.1) mmol/L Chloride 107 (98-107) mmol/L Carbon Dioxide 25.4 (21.0-32.0) mmol/L BUN 25 H (7.0-18.0) mg/dL Creatinine 1.0 (0.8-1.3) mg/dL Est Cr Clr Drug Dosing 56.78 mL/min Estimated GFR (MDRD) > 60.0 ml/min Glucose 109 H (74-106) mg/dL POC Glucose (60-110) mg/dL Calcium 8.4 L (8.5-10.1) mg/dL Total Bilirubin 0.6 (0.2-1.0) mg/dL AST 17 (15-37) IU/L ALT 30 (14-63) IU/L Alkaline Phosphatase 83 (46-116) U/L Troponin I < 0.050 (0.000-0.056) ng/mL Total Protein 6.2 L (6.4-8.2) g/dL Albumin 3.3 L (3.4-5.0) g/dL Globulin 2.9 (2.6-4.0) g/dL Albumin/Globulin Ratio 1.1 (0.9-1.6) TSH 3rd Generation 1.27 (0.36-3.74) uIU/mL 05/17/19 Range/Units 15:15 WBC (4.0-11.0) K/uL RBC (4.50-5.90) M/uL Hgb (13.0-17.0) g/dL Hct (38.0-50.0) % MCV (80.0-98.0) fL MCH (27.0-32.0) pg MCHC (31.0-37.0) g/dL RDW Std Deviation (28.0-62.0) fl RDW Coeff of [place] (11.0-15.0) % Plt Count (150-400) K/uL MPV (7.40-12.00) fL Neut % (Auto) (48.0-80.0) % Lymph % (Auto) (16.0-40.0) % [place] % (Auto) (0.0-15.0) % Eos % (Auto) (0.0-7.0) % Baso % (Auto) (0.0-1.5) % Neut # (Auto) (1.4-5.7) K/uL Lymph # (Auto) (0.6-2.4) K/uL [place] # (Auto) (0.0-0.8) K/uL Eos # (Auto) (0.0-0.7) K/uL Baso # (Auto) (0.0-0.1) K/uL Nucleated RBC % /100WBC Nucleated RBCs # K/uL INR APTT (18.6-31.3) SEC Sodium (136-148) mmol/L Potassium (3.5-5.1) mmol/L Chloride (98-107) mmol/L Carbon Dioxide (21.0-32.0) mmol/L BUN (7.0-18.0) mg/dL Creatinine (0.8-1.3) mg/dL Est Cr Clr Drug Dosing mL/min Estimated GFR (MDRD) ml/min Glucose (74-106) mg/dL POC Glucose 99 (60-110) mg/dL Calcium (8.5-10.1) mg/dL Total Bilirubin (0.2-1.0) mg/dL AST (15-37) IU/L ALT (14-63) IU/L Alkaline Phosphatase (46-116) U/L Troponin I (0.000-0.056) ng/mL Total Protein (6.4-8.2) g/dL Albumin (3.4-5.0) g/dL Globulin (2.6-4.0) g/dL Albumin/Globulin Ratio (0.9-1.6) TSH 3rd Generation (0.36-3.74) uIU/mL Result Diagrams: 05/17/19 10:00 05/17/19 10:00 Orders Last 24hrs: Active Orders 24 hr Category Date Time Status Patient Status [ADT] Stat ADT 05/17/19 11:16 Active Assess Neurological Status [RC] ASDIRECTED Care 05/17/19 09:56 Active Bedrest [RC] ASDIRECTED Care 05/17/19 09:56 Active Blood Glucose Check, Bedside [RC] TIDMEALS Care 05/17/19 11:15 Active Cardiac Monitoring [RC] . DIRECTED Care 05/17/19 09:56 Active EKG Documentation Completion [RC] STAT Care 05/17/19 09:56 Active Initiate Acute Stroke Protocol [RC] STAT Care 05/17/19 09:56 Active Intake and Output [RC] Q12H Care 05/17/19 11:13 Active NIH Stroke Scale [RC] ASDIRECTED Care 05/17/19 09:56 Active Nursing Bedside Swallow Screen [RC] ASDIRECTED Care 05/17/19 09:56 Active Orthostatic Vital Signs [RC] DAILY Care 05/17/19 11:13 Active Oxygen Therapy [RC] ASDIRECTED Care 05/17/19 09:56 Active Stroke Education, General [RC] Click to Edit Care 05/17/19 09:56 Active Telemetry Monitoring [Cardiac Monitoring] [RC] . Care 05/17/19 11:13 Active DIRECTED Vital Signs [RC] Q15M Care 05/17/19 09:56 Active Vital Signs [RC] Q4H Care 05/17/19 11:13 Active OT Evaluation and Treatment [CONS] Stat Cons 05/17/19 11:13 Active PT Evaluation and Treatment [CONS] Stat Cons 05/17/19 11:13 Active [place] [employer] Diet [DIET] Diet 05/17/19 Dinner Active Cervical Spine Comp w wo Cont [MR] Stat Exams 05/17/19 11:14 Ordered UA W/MICROSCOPIC [URIN] Stat Lab 05/17/19 10:24 Ordered Acetaminophen [Tylenol] Med 05/17/19 11:15 Active 650 mg PO Q4H PRN Aspirin Med 05/17/19 21:00 Active 81 mg PO BEDTIME Insulin Aspart [NovoLOG] Med 05/17/19 11:30 Active See Protocol SUBCUT TIDAC Lisinopril [Prinivil] Med 05/18/19 09:00 Active 2.5 mg PO DAILY Ondansetron [Zofran] Med 05/17/19 11:15 Active 4 mg IVPUSH Q4H PRN Sodium Chloride 0.9% [Normal Saline] Med 05/17/19 09:56 Active 10 ml IV ASDIRECTED PRN Sodium Chloride 0.9% [Saline Flush] Med 05/17/19 09:56 Active 10 ml FLUSH ASDIRECTED PRN Sodium Chloride 0.9% [Saline Flush] Med 05/17/19 09:56 Active 2.5 ml FLUSH ASDIRECTED PRN Peripheral IV Insertion Adult [OM.PC] Stat Oth 05/17/19 09:56 Ordered Peripheral IV Insertion Adult [OM.PC] Stat Oth 05/17/19 09:56 Ordered Resuscitation Status Stat Resus Stat 05/17/19 11:13 Ordered Medication Orders Acetaminophen (Tylenol) 650 mg PO Q4H PRN PRN Reason: Pain/Fever Aspirin (Aspirin) 81 mg PO BEDTIME JEREMY Insulin Aspart (Novolog) 0 unit SUBCUT TIDAC JEREMY; Protocol Last Admin: 05/17/19 13:40 Dose: Not Given Lisinopril (Prinivil) 2.5 mg PO DAILY JEREMY Ondansetron HCl (Zofran) 4 mg IVPUSH Q4H PRN PRN Reason: Nausea/Vomiting Sodium Chloride (Saline Flush) 10 ml FLUSH ASDIRECTED PRN PRN Reason: Keep Vein Open Sodium Chloride (Saline Flush) 2.5 ml FLUSH ASDIRECTED PRN PRN Reason: Keep Vein Open Sodium Chloride (Normal Saline) 10 ml IV ASDIRECTED PRN PRN Reason: IV Use
[2019-05-17] MEDS ORDERED: Acetaminophen 325 MG Tab PO PRN (11:15)
[2019-05-17] MEDS ORDERED: Ondansetron 4 MG/2 ML SDV IVPUSH PRN (11:15)
[2019-05-17 11:18] LABS: BLOOD UREA NITROGEN,BUN 25 mg/dL (7.0-18.0); CARBON DIOXIDE,CO2 25.4 mmol/L (21.0-32.0); CHLORIDE,CL 107 mmol/L (98-107); GLUCOSE RANDOM 109 mg/dL (74-106); POTASSIUM,K 4.3 mmol/L (3.5-5.1); SODIUM,NA 142 mmol/L (136-148)
[2019-05-17] MEDS ORDERED: Gadobenate Dimeglumine 529 MG/ML 20 ML SDV IVPUSH STA (13:34)
[2019-05-17] MEDS: Insulin Aspart 100 Units/ML 3 ML Pen SUBCUT SCH ×2 (13:40→18:10)
--- NOTE | 2019-05-17 15:13 | MR ---
INDICATION: 84-year-old male. History of neck trauma in March. Evaluate for cord impingement. TECHNIQUE: Sagittal T1 sagittal and axial T2 sagittal STIR and gadolinium enhanced sagittal and axial T1 weighted images. FINDINGS: There is severe multilevel cervical spondylosis. There is exaggerated cervical lordosis. No stenosis of the foramen magnum level C1 or C2 levels. At C2-3 small disc bulge to the left of midline without cord impingement. The neural foramen are adequately patent. At C3-4 large central disc extrusion extends slightly above and below the disk space into the left of midline and there is thickening of the dorsal ligamentum flavum and associated severe stenosis of the cervical spinal canal. There is impingement of the spinal cord with reduced AP cord diameter. Increased T2 signal intensity within the cord extends from C3-C4 consistent with cord edema or myelomalacia. There is moderate bilateral neural foraminal stenosis. At C4-5 there is a broad-based disc protrusion with thickening of the ligamentum flavum and severe spinal canal stenosis. There is a compression deformity of the spinal cord. There is moderate bilateral foraminal stenosis. At C5-6 degenerative narrowing of the disc space. Circumferential disk bulge osteophyte complex with mild thickening of the dorsal ligamentum flavum. There is moderate spinal canal stenosis without [place] cord compression at this level. There is left greater than right bilateral foraminal stenosis. At C6-7 degenerative disc space narrowing. Shallow left posterior lateral disk protrusion osteophyte contacts the ventral margin of the spinal cord. Mild central stenosis. Left-sided foraminal stenosis with probable impingement of the left C7 nerve root. At C7-T1 no evidence of disc herniation central or lateral stenosis. The upper thoracic spine there is deformity of the T3 superior endplate without bone edema. The appearance consistent with mature compression fracture. Impression : 1. 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 Moderate degenerative spinal canal stenosis at C5-6. 2. Multilevel neural foraminal stenosis most severe on the left at C6-7 with probable impingement of the left C7 nerve root. 3. Spinal cord compression at C3-4 due to large central disc herniation. Associated abnormal cord signal consistent with edema and/or myelomalacia. 4. Mature mild compression deformity of the T3 superior endplate. No bone edema to suggest acute osseous injury. Dictated by Wang Campo MD @ May 17 2019 3:03PM Signed by Dr. Wang Campo @ May 17 2019 3:11PM
--- NOTE | 2019-05-17 15:47 | PCM.SN ---
<Radha Duetsch - Last Filed: 05/17/19 15:41> - Free Text/Narrative Note: MRI results returned and showed severe degenerative central canal stenosis at C3 -C4 and C4-C5 levels with compressive deformity of the spinal cord. Moderate degenerative spinal canal stenosis at C5-6. Multi-level foraminal stenosis most severe on the left at C6-7 with probable impingement of the left C7 nerve root. Spinal cord compression at C3-4, due to the large central disc herniation with associated abnormal cord signal consistent with edema and or myelomalacia. Discussed the findings with Dr. Bergeron, neurosurgery, in [place]. He stated he did not feel like the patient needs acute treatment for his condition. He stated he is not likely a candidate for surgery based on age and there is no medications we can get him in the interim until he seen by Dr. Bergeron in the outpatient clinic. Dr. Bergeron like to see him as an outpatient referral to discuss options. <Wang Mann - Last Filed: 05/17/19 17:17> - Free Text/Narrative Note: I have seen and examined the patient independently of medical delivery driver, Dr. Deutsch, . I have reviewed and agree with the plan of care as outlined for this patient by her. I have discussed the case with her. Please see orders.
[2019-05-17] MEDS: Aspirin 81 MG Tab.Chew PO SCH (21:07)
[2019-05-18] MEDS: Insulin Aspart 100 Units/ML 3 ML Pen SUBCUT SCH ×3 (06:41→16:33)
[2019-05-18 07:51] LABS: BLOOD UREA NITROGEN,BUN 23 mg/dL (7.0-18.0); CARBON DIOXIDE,CO2 24.1 mmol/L (21.0-32.0); CHLORIDE,CL 106 mmol/L (98-107); GLUCOSE RANDOM 137 mg/dL (74-106); POTASSIUM,K 4.5 mmol/L (3.5-5.1); SODIUM,NA 142 mmol/L (136-148)
--- NOTE | 2019-05-18 08:18 | CT ---
indication : Change in mental status. COMPARISON: CT head without intravenous contrast May 17 2019. TECHNIQUE: CT head without intravenous contrast; coronal and sagittal reformats. FINDINGS: Age-appropriate brain atrophy. No intracranial hemorrhage. No mass lesions or shift of the midline structures. The calvarium is unremarkable. No interval change identified when compared to May 17, 2019. IMPRESSION: 1. Age-appropriate brain atrophy. 2. No intracranial hemorrhage or mass lesions. 3. No interval change. Please note that all CT scans at this facility use dose modulation, iterative reconstruction, and/or weight-based dosing when appropriate to reduce radiation dose to as low as reasonably achievable. Dictated by Lorena Maravilla MD @ May 18 2019 8:12AM Signed by Dr. Lorena Maravilla @ May 18 2019 8:16AM
--- NOTE | 2019-05-18 08:27 | PCM.PN ---
<Radha Deutsch - Last Filed: 05/18/19 08:49> - General Info Date of Service: 05/18/19 Subjective Update: The patient is an 84-year-old male who was admitted yesterday for weakness, lightheadedness, neck pain, and fall at home in March. His MRI was done and showed multilevel neural foraminal stenosis, degenerative central spinal canal stenosis with cord compression of his cervical spine. He reports he did well overnight, had no complaints. While I was interviewing him, and shortly after his blood was drawn, his eyes rolled back in his head and he became unresponsive. A rapid response was called. Vitals showed a blood pressure 140/ 104, heart rate 68, was normal sinus rhythm on telemetry, 93% on room air. His blood glucose was 122. An EKG was done which showed normal sinus rhythm with no changes compared to previous EKG. Troponin was obtained and was negative. A head CT was obtained and showed no acute interval change from CT obtained in ER yesterday, did show age related atrophy, no mass/hemorrhage. During the event the patient was unresponsive, his eyes were open but would not track, he would not respond to name or touch. His pupils were equal and reactive. Eventually he came back, was alert and oriented x 3, speaking normally , following commands, normal strength. - Review of Systems General: Reports: No Symptoms HEENT: Reports: No Symptoms Pulmonary: Reports: No Symptoms Cardiovascular: Reports: No Symptoms Gastrointestinal: Reports: No Symptoms Genitourinary: Reports: No Symptoms Musculoskeletal: Reports: No Symptoms Skin: Reports: No Symptoms Neurological: Reports: Other (unresponsive episode) Psychiatric: Reports: No Symptoms - Patient Data Vitals - Most Recent: Last Vital Signs Temp 96.3 F 05/18/19 07:35 Pulse 65 05/18/19 07:35 Resp 14 05/18/19 07:35 BP 140/104 H 05/18/19 07:35 Pulse Ox 94 L 05/18/19 07:35 Orthostatic Blood Pressure [ 140/80 Standing] Orthostatic Blood Pressure [ 131/77 Sitting] Orthostatic Blood Pressure [ 128/77 Supine] Weight - Most Recent: 79.379 kg I&O - Last 24 Hours: Intake & Output 05/17/19 05/18/19 05/18/19 22:59 06:59 14:59 Intake Total 500 300 Output Total 250 625 Balance 250 -325 Lab Results Last 24 Hours: Laboratory Results - last 24 hr 05/17/19 05/17/19 05/17/19 Range/Units 10:00 10:00 10:00 WBC 9.30 (4.0-11.0) K/uL RBC 4.35 L (4.50-5.90) M/uL Hgb 13.7 (13.0-17.0) g/dL Hct 41.8 (38.0-50.0) % MCV 96.1 (80.0-98.0) fL MCH 31.5 (27.0-32.0) pg MCHC 32.8 (31.0-37.0) g/dL RDW Std Deviation 50.3 (28.0-62.0) fl RDW Coeff of [place] 14 (11.0-15.0) % Plt Count 240 (150-400) K/uL MPV 8.80 (7.40-12.00) fL Neut % (Auto) 61.5 (48.0-80.0) % Lymph % (Auto) 24.0 (16.0-40.0) % [place] % (Auto) 7.8 (0.0-15.0) % Eos % (Auto) 6.3 (0.0-7.0) % Baso % (Auto) 0.4 (0.0-1.5) % Neut # (Auto) 5.7 (1.4-5.7) K/uL Lymph # (Auto) 2.2 (0.6-2.4) K/uL [place] # (Auto) 0.7 (0.0-0.8) K/uL Eos # (Auto) 0.6 (0.0-0.7) K/uL Baso # (Auto) 0.0 (0.0-0.1) K/uL Nucleated RBC % 0.0 /100WBC Nucleated RBCs # 0 K/uL INR 1.03 APTT 24.3 (18.6-31.3) SEC Sodium 142 (136-148) mmol/L Potassium 4.3 (3.5-5.1) mmol/L Chloride 107 (98-107) mmol/L Carbon Dioxide 25.4 (21.0-32.0) mmol/L BUN 25 H (7.0-18.0) mg/dL Creatinine 1.0 (0.8-1.3) mg/dL Est Cr Clr Drug Dosing 56.78 mL/min Estimated GFR (MDRD) > 60.0 ml/min Glucose 109 H (74-106) mg/dL POC Glucose (60-110) mg/dL Calcium 8.4 L (8.5-10.1) mg/dL Total Bilirubin 0.6 (0.2-1.0) mg/dL AST 17 (15-37) IU/L ALT 30 (14-63) IU/L Alkaline Phosphatase 83 (46-116) U/L Troponin I < 0.050 (0.000-0.056) ng/mL Total Protein 6.2 L (6.4-8.2) g/dL Albumin 3.3 L (3.4-5.0) g/dL Globulin 2.9 (2.6-4.0) g/dL Albumin/Globulin Ratio 1.1 (0.9-1.6) TSH 3rd Generation 1.27 (0.36-3.74) uIU/mL 05/17/19 05/17/19 05/18/19 Range/Units 15:15 17:57 06:20 WBC (4.0-11.0) K/uL RBC (4.50-5.90) M/uL Hgb (13.0-17.0) g/dL Hct (38.0-50.0) % MCV (80.0-98.0) fL MCH (27.0-32.0) pg MCHC (31.0-37.0) g/dL RDW Std Deviation (28.0-62.0) fl RDW Coeff of [place] (11.0-15.0) % Plt Count (150-400) K/uL MPV (7.40-12.00) fL Neut % (Auto) (48.0-80.0) % Lymph % (Auto) (16.0-40.0) % [place] % (Auto) (0.0-15.0) % Eos % (Auto) (0.0-7.0) % Baso % (Auto) (0.0-1.5) % Neut # (Auto) (1.4-5.7) K/uL Lymph # (Auto) (0.6-2.4) K/uL [place] # (Auto) (0.0-0.8) K/uL Eos # (Auto) (0.0-0.7) K/uL Baso # (Auto) (0.0-0.1) K/uL Nucleated RBC % /100WBC Nucleated RBCs # K/uL INR APTT (18.6-31.3) SEC Sodium (136-148) mmol/L Potassium (3.5-5.1) mmol/L Chloride (98-107) mmol/L Carbon Dioxide (21.0-32.0) mmol/L BUN (7.0-18.0) mg/dL Creatinine (0.8-1.3) mg/dL Est Cr Clr Drug Dosing mL/min Estimated GFR (MDRD) ml/min Glucose (74-106) mg/dL POC Glucose 99 184 H 115 H (60-110) mg/dL Calcium (8.5-10.1) mg/dL Total Bilirubin (0.2-1.0) mg/dL AST (15-37) IU/L ALT (14-63) IU/L Alkaline Phosphatase (46-116) U/L Troponin I (0.000-0.056) ng/mL Total Protein (6.4-8.2) g/dL Albumin (3.4-5.0) g/dL Globulin (2.6-4.0) g/dL Albumin/Globulin Ratio (0.9-1.6) TSH 3rd Generation (0.36-3.74) uIU/mL 05/18/19 05/18/19 05/18/19 Range/Units 07:15 07:15 07:15 WBC 9.67 (4.0-11.0) K/uL RBC 4.50 (4.50-5.90) M/uL Hgb 14.2 (13.0-17.0) g/dL Hct 42.9 (38.0-50.0) % MCV 95.3 (80.0-98.0) fL MCH 31.6 (27.0-32.0) pg MCHC 33.1 (31.0-37.0) g/dL RDW Std Deviation 50.0 (28.0-62.0) fl RDW Coeff of [place] 14 (11.0-15.0) % Plt Count 240 (150-400) K/uL MPV 9.00 (7.40-12.00) fL Neut % (Auto) 65.0 (48.0-80.0) % Lymph % (Auto) 20.6 (16.0-40.0) % [place] % (Auto) 8.0 (0.0-15.0) % Eos % (Auto) 5.9 (0.0-7.0) % Baso % (Auto) 0.5 (0.0-1.5) % Neut # (Auto) 6.3 H (1.4-5.7) K/uL Lymph # (Auto) 2.0 (0.6-2.4) K/uL [place] # (Auto) 0.8 (0.0-0.8) K/uL Eos # (Auto) 0.6 (0.0-0.7) K/uL Baso # (Auto) 0.1 (0.0-0.1) K/uL Nucleated RBC % 0.0 /100WBC Nucleated RBCs # 0 K/uL INR APTT (18.6-31.3) SEC Sodium 142 (136-148) mmol/L Potassium 4.5 (3.5-5.1) mmol/L Chloride 106 (98-107) mmol/L Carbon Dioxide 24.1 (21.0-32.0) mmol/L BUN 23 H (7.0-18.0) mg/dL Creatinine 1.1 (0.8-1.3) mg/dL Est Cr Clr Drug Dosing 48.36 mL/min Estimated GFR (MDRD) > 60.0 ml/min Glucose 137 H (74-106) mg/dL POC Glucose (60-110) mg/dL Calcium 8.5 (8.5-10.1) mg/dL Total Bilirubin (0.2-1.0) mg/dL AST (15-37) IU/L ALT (14-63) IU/L Alkaline Phosphatase (46-116) U/L Troponin I < 0.050 (0.000-0.056) ng/mL Total Protein (6.4-8.2) g/dL Albumin (3.4-5.0) g/dL Globulin (2.6-4.0) g/dL Albumin/Globulin Ratio (0.9-1.6) TSH 3rd Generation (0.36-3.74) uIU/mL Med Orders - Current: Current Medications Acetaminophen (Tylenol) 650 mg PO Q4H PRN PRN Reason: Pain/Fever Aspirin (Aspirin) 81 mg PO BEDTIME [facility]Y Last Admin: 05/17/19 21:07 Dose: 81 mg Insulin Aspart (Novolog) 0 unit SUBCUT TIDAC [facility]; Protocol Last Admin: 05/18/19 06:41 Dose: Not Given Lisinopril (Prinivil) 2.5 mg PO DAILY [facility] Ondansetron HCl (Zofran) 4 mg IVPUSH Q4H PRN PRN Reason: Nausea/Vomiting Sodium Chloride (Saline Flush) 10 ml FLUSH ASDIRECTED PRN PRN Reason: Keep Vein Open Sodium Chloride (Saline Flush) 2.5 ml FLUSH ASDIRECTED PRN PRN Reason: Keep Vein Open Sodium Chloride (Normal Saline) 10 ml IV ASDIRECTED PRN PRN Reason: IV Use Discontinued Medications Gadobenate Dimeglumine (Multihance) 16 ml IVPUSH ONETIME STA Stop: 05/17/19 13:35 Last Admin: 05/17/19 13:35 Dose: 16 ml - Exam General: Other (during event- not alert or oriented after event A&O x3) HEENT: Pupils Equal, Pupils Reactive Neck: Supple Lungs: Clear to Auscultation, Normal Respiratory Effort Cardiovascular: Regular Rate, Regular Rhythm Extremities: No Pedal Edema (during event- unable to speak or follow commands after event-speaking in full sentences, no ext weakness, no facial droop) - Problem List & Annotations (1) Lightheadedness SNOMED Code(s): 858319060 Code(s): R42 - DIZZINESS AND GIDDINESS Status: Acute Current Visit: Yes (2) Fall at home SNOMED Code(s): 51172472 Code(s): W19.XXXA - UNSPECIFIED FALL, INITIAL ENCOUNTER; Y92.009 - UNSP PLACE IN [facility]SP [facility]ENCE [facility] Status: Acute Current Visit: Yes (3) Cervical radicular pain SNOMED Code(s): 467681499 Code(s): M54.12 - RADICULOPATHY, CERVICAL REGION Status: Acute Current Visit: Yes (4) Weakness SNOMED Code(s): 02626294 Code(s): R53.1 - WEAKNESS Status: Acute Current Visit: Yes (5) Unresponsive episode SNOMED Code(s): 580375573 Code(s): R41.89 - OTH SYMPTOMS AND SIGNS W COGNITIVE FUNCTIONS AND AWARENESS Status: Acute Current Visit: Yes (6) Cervical cord compression with myelopathy SNOMED Code(s): 14857850, 845310222 Code(s): G95.20 - UNSPECIFIED CORD COMPRESSION Status: Acute Current Visit: Yes - Problem List Review Problem List Initiated/Reviewed/Updated: Yes - My Orders Last 24 Hours: My Active Orders 05/17/19 11:13 Intake and Output [RC] Q12H Orthostatic Vital Signs [RC] DAILY Vital Signs [RC] Q4H OT Evaluation and Treatment [CONS] Stat PT Evaluation and Treatment [CONS] Stat Resuscitation Status Stat 05/17/19 11:15 Blood Glucose Check, Bedside [RC] TIDMEALS Acetaminophen [Tylenol] 650 mg PO Q4H PRN Ondansetron [Zofran] 4 mg IVPUSH Q4H PRN 05/17/19 11:30 Insulin Aspart [NovoLOG] See Protocol SUBCUT TIDAC 05/17/19 21:00 Aspirin 81 mg PO BEDTIME 05/17/19 [employer] Diet [DIET] 05/18/19 09:00 Lisinopril [Prinivil] 2.5 mg PO DAILY - Plan Plan:: 1. Unresponsive episode- possibly vasovagal due to blood draw-patient now back at baseline- repeat head CT negative, glucose 122, trop negative, EKG SR- no change, no electrolyte derangements. Continue to monitor. 2.neck pain with numbness/tingling of bilateral fingers s/p fall at home- MRI results returned and showed severe degenerative central canal stenosis at C3-C4 and C4-C5 levels with compressive deformity of the spinal cord. Moderate degenerative spinal canal stenosis at C5-6. Multi-level foraminal stenosis most severe on the left at C6-7 with probable impingement of the left C7 nerve root. Spinal cord compression at C3-4, due to the large central disc herniation with associated abnormal cord signal consistent with edema and or myelomalacia. Discussed the findings with Dr. Bergeron, neurosurgery, in [place]. He stated he did not feel like the patient needs acute treatment for his condition. He stated he is not likely a candidate for surgery based on age and there is no medications we can get him in the interim until he seen by Dr. Bergeron in the outpatient clinic. Dr. Bergeron like to see him as an outpatient referral to discuss options. 3. Lightheadedness and weakness- orthostatic vitals normal, no significant events on telemetry, PT/OT eval and treat 4. DMII- hold metformin, accucheck and sliding scale insulin. Discussed with patient and about their thoughts on [facility] for rehab if necessary. They do not want to go to [place]. They are open to home health if deemed necessary. <Wang Mann - Last Filed: 05/18/19 09:45> - General Info Admission Dx/Problem (Free Text): I have seen and examined the patient independently of medical office specialist, Dr. Deutsch, DO. I have reviewed and agree with the plan of care as outlined for this patient by her. I have discussed the case with her. Please see orders. Rapid response code was initially called. - Patient Data Vitals - Most Recent: Last Vital Signs Temp 35.7 C 05/18/19 07:35 Pulse 65 05/18/19 07:35 Resp 14 05/18/19 07:35 BP 140/104 H 05/18/19 08:46 Pulse Ox 94 L 05/18/19 07:35 Orthostatic Blood Pressure [ 140/80 Standing] Orthostatic Blood Pressure [ 131/77 Sitting] Orthostatic Blood Pressure [ 128/77 Supine] I&O - Last 24 Hours: Intake & Output 05/17/19 05/18/19 05/18/19 22:59 06:59 14:59 Intake Total 500 300 Output Total 250 625 Balance 250 -325 Lab Results Last 24 Hours: Laboratory Results - last 24 hr 05/17/19 05/17/19 05/17/19 Range/Units 10:00 10:00 10:00 WBC 9.30 (4.0-11.0) K/uL RBC 4.35 L (4.50-5.90) M/uL Hgb 13.7 (13.0-17.0) g/dL Hct 41.8 (38.0-50.0) % MCV 96.1 (80.0-98.0) fL MCH 31.5 (27.0-32.0) pg MCHC 32.8 (31.0-37.0) g/dL RDW Std Deviation 50.3 (28.0-62.0) fl RDW Coeff of [place] 14 (11.0-15.0) % Plt Count 240 (150-400) K/uL MPV 8.80 (7.40-12.00) fL Neut % (Auto) 61.5 (48.0-80.0) % Lymph % (Auto) 24.0 (16.0-40.0) % [place] % (Auto) 7.8 (0.0-15.0) % Eos % (Auto) 6.3 (0.0-7.0) % Baso % (Auto) 0.4 (0.0-1.5) % Neut # (Auto) 5.7 (1.4-5.7) K/uL Lymph # (Auto) 2.2 (0.6-2.4) K/uL [place] # (Auto) 0.7 (0.0-0.8) K/uL Eos # (Auto) 0.6 (0.0-0.7) K/uL Baso # (Auto) 0.0 (0.0-0.1) K/uL Nucleated RBC % 0.0 /100WBC Nucleated RBCs # 0 K/uL INR 1.03 APTT 24.3 (18.6-31.3) SEC Sodium 142 (136-148) mmol/L Potassium 4.3 (3.5-5.1) mmol/L Chloride 107 (98-107) mmol/L Carbon Dioxide 25.4 (21.0-32.0) mmol/L BUN 25 H (7.0-18.0) mg/dL Creatinine 1.0 (0.8-1.3) mg/dL Est Cr Clr Drug Dosing 56.78 mL/min Estimated GFR (MDRD) > 60.0 ml/min Glucose 109 H (74-106) mg/dL POC Glucose (60-110) mg/dL Calcium 8.4 L (8.5-10.1) mg/dL Total Bilirubin 0.6 (0.2-1.0) mg/dL AST 17 (15-37) IU/L ALT 30 (14-63) IU/L Alkaline Phosphatase 83 (46-116) U/L Troponin I < 0.050 (0.000-0.056) ng/mL Total Protein 6.2 L (6.4-8.2) g/dL Albumin 3.3 L (3.4-5.0) g/dL Globulin 2.9 (2.6-4.0) g/dL Albumin/Globulin Ratio 1.1 (0.9-1.6) TSH 3rd Generation 1.27 (0.36-3.74) uIU/mL 05/17/19 05/17/19 05/18/19 Range/Units 15:15 17:57 06:20 WBC (4.0-11.0) K/uL RBC (4.50-5.90) M/uL Hgb (13.0-17.0) g/dL Hct (38.0-50.0) % MCV (80.0-98.0) fL MCH (27.0-32.0) pg MCHC (31.0-37.0) g/dL RDW Std Deviation (28.0-62.0) fl RDW Coeff of [place] (11.0-15.0) % Plt Count (150-400) K/uL MPV (7.40-12.00) fL Neut % (Auto) (48.0-80.0) % Lymph % (Auto) (16.0-40.0) % [place] % (Auto) (0.0-15.0) % Eos % (Auto) (0.0-7.0) % Baso % (Auto) (0.0-1.5) % Neut # (Auto) (1.4-5.7) K/uL Lymph # (Auto) (0.6-2.4) K/uL [place] # (Auto) (0.0-0.8) K/uL Eos # (Auto) (0.0-0.7) K/uL Baso # (Auto) (0.0-0.1) K/uL Nucleated RBC % /100WBC Nucleated RBCs # K/uL INR APTT (18.6-31.3) SEC Sodium (136-148) mmol/L Potassium (3.5-5.1) mmol/L Chloride (98-107) mmol/L Carbon Dioxide (21.0-32.0) mmol/L BUN (7.0-18.0) mg/dL Creatinine (0.8-1.3) mg/dL Est Cr Clr Drug Dosing mL/min Estimated GFR (MDRD) ml/min Glucose (74-106) mg/dL POC Glucose 99 184 H 115 H (60-110) mg/dL Calcium (8.5-10.1) mg/dL Total Bilirubin (0.2-1.0) mg/dL AST (15-37) IU/L ALT (14-63) IU/L Alkaline Phosphatase (46-116) U/L Troponin I (0.000-0.056) ng/mL Total Protein (6.4-8.2) g/dL Albumin (3.4-5.0) g/dL Globulin (2.6-4.0) g/dL Albumin/Globulin Ratio (0.9-1.6) TSH 3rd Generation (0.36-3.74) uIU/mL 05/18/19 05/18/19 05/18/19 Range/Units 07:15 07:15 07:15 WBC 9.67 (4.0-11.0) K/uL RBC 4.50 (4.50-5.90) M/uL Hgb 14.2 (13.0-17.0) g/dL Hct 42.9 (38.0-50.0) % MCV 95.3 (80.0-98.0) fL MCH 31.6 (27.0-32.0) pg MCHC 33.1 (31.0-37.0) g/dL RDW Std Deviation 50.0 (28.0-62.0) fl RDW Coeff of [place] 14 (11.0-15.0) % Plt Count 240 (150-400) K/uL MPV 9.00 (7.40-12.00) fL Neut % (Auto) 65.0 (48.0-80.0) % Lymph % (Auto) 20.6 (16.0-40.0) % [place] % (Auto) 8.0 (0.0-15.0) % Eos % (Auto) 5.9 (0.0-7.0) % Baso % (Auto) 0.5 (0.0-1.5) % Neut # (Auto) 6.3 H (1.4-5.7) K/uL Lymph # (Auto) 2.0 (0.6-2.4) K/uL [place] # (Auto) 0.8 (0.0-0.8) K/uL Eos # (Auto) 0.6 (0.0-0.7) K/uL Baso # (Auto) 0.1 (0.0-0.1) K/uL Nucleated RBC % 0.0 /100WBC Nucleated RBCs # 0 K/uL INR APTT (18.6-31.3) SEC Sodium 142 (136-148) mmol/L Potassium 4.5 (3.5-5.1) mmol/L Chloride 106 (98-107) mmol/L Carbon Dioxide 24.1 (21.0-32.0) mmol/L BUN 23 H (7.0-18.0) mg/dL Creatinine 1.1 (0.8-1.3) mg/dL Est Cr Clr Drug Dosing 48.36 mL/min Estimated GFR (MDRD) > 60.0 ml/min Glucose 137 H (74-106) mg/dL POC Glucose (60-110) mg/dL Calcium 8.5 (8.5-10.1) mg/dL Total Bilirubin (0.2-1.0) mg/dL AST (15-37) IU/L ALT (14-63) IU/L Alkaline Phosphatase (46-116) U/L Troponin I < 0.050 (0.000-0.056) ng/mL Total Protein (6.4-8.2) g/dL Albumin (3.4-5.0) g/dL Globulin (2.6-4.0) g/dL Albumin/Globulin Ratio (0.9-1.6) TSH 3rd Generation (0.36-3.74) uIU/mL Med Orders - Current: Current Medications Acetaminophen (Tylenol) 650 mg PO Q4H PRN PRN Reason: Pain/Fever Aspirin (Aspirin) 81 mg PO BEDTIME [facility] Last Admin: 05/17/19 21:07 Dose: 81 mg Insulin Aspart (Novolog) 0 unit SUBCUT TIDAC [facility]; Protocol Last Admin: 05/18/19 06:41 Dose: Not Given Lisinopril (Prinivil) 2.5 mg PO DAILY [facility] Last Admin: 05/18/19 08:46 Dose: 2.5 mg Ondansetron HCl (Zofran) 4 mg IVPUSH Q4H PRN PRN Reason: Nausea/Vomiting Sodium Chloride (Saline Flush) 10 ml FLUSH ASDIRECTED PRN PRN Reason: Keep Vein Open Sodium Chloride (Saline Flush) 2.5 ml FLUSH ASDIRECTED PRN PRN Reason: Keep Vein Open Sodium Chloride (Normal Saline) 10 ml IV ASDIRECTED PRN PRN Reason: IV Use Discontinued Medications Gadobenate Dimeglumine (Multihance) 16 ml IVPUSH ONETIME STA Stop: 05/17/19 13:35 Last Admin: 05/17/19 13:35 Dose: 16 ml - My Orders Last 24 Hours: My Active Orders 05/18/19 08:00 EKG 12 Lead [EKG Documentation Completion] [RC] STAT
[2019-05-18] MEDS: Lisinopril 5 MG Tab PO SCH (08:46)
--- NOTE | 2019-05-18 16:15 | CR ---
Indication: Neck pain. Technique: AP, open-mouth, lateral, flexion, extension views of cervical spine are obtained. Comparison: MRI dated May 17, 2019. Findings: Degenerative change of the cervical spine are identified. Intervertebral disc space narrowing is identified at C3-4, C4-5, and C5-6. On the flexion and extension views no abnormal subluxation is identified. The odontoid is intact. Impression: Degenerative change. No acute fracture. No abnormal subluxation. Dictated by Fern Acuna MD @ May 18 2019 4:12PM Signed by Dr. Fern Acuna @ May 18 2019 4:14PM
[2019-05-18] MEDS: Aspirin 81 MG Tab.Chew PO SCH (20:34)
[2019-05-19 06:28] LABS: BLOOD UREA NITROGEN,BUN 27 mg/dL (7.0-18.0); CARBON DIOXIDE,CO2 25.3 mmol/L (21.0-32.0); CHLORIDE,CL 105 mmol/L (98-107); GLUCOSE RANDOM 127 mg/dL (74-106); POTASSIUM,K 4.4 mmol/L (3.5-5.1); SODIUM,NA 140 mmol/L (136-148)
--- NOTE | 2019-05-19 07:36 | PCM.DCSUM1 ---
<Rdaha Deutsch - Last Filed: 05/19/19 09:15> Discharge Summary - Hospital Course HPI Initial Comments: Admission Date: 05/17/19 Discharge Date: 05/19/19 Admission Diagnosis: 1. neck pain with numbness/tingling of bilateral fingers s/p fall at home 2. lightheadedness and weakness 3. DMII Discharge Diagnosis: 1. unresponsive episode- possibly vasovagal 2. 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 Lightheadedness and weakness 4. DMII Procedures: None Consults: None Hospital Course: The patient is a 84 year old male who presents today with dizziness and weakness for the past week but worse this morning. Reports fell out of bed in March, hitting his head and neck but did not experience LOC. Since the fall he has had neck pressure when pressure applies, like laying on the pillow, with associated numbness/tingling in fingers bilaterally. In the ER , stroke code was called. Work up included negative CT head. Lab work showed no anemia or leukocytosis. PT/INR wnl, trop negative, TSH wnl, and CMP did not show any significant electrolyte abn. EKG showed normal sinus rhythm without ST changes. Patient was admitted to medical surgical floor, monitored on telemetry without any significant events. Based on his symptoms and recent fall, MRI of the cervical spine was completed. It showed MRI results returned and showed severe degenerative central canal stenosis at C3-C4 and C4-C5 levels with compressive deformity of the spinal cord. Moderate degenerative spinal canal stenosis at C5-6. Multi-level foraminal stenosis most severe on the left at C6- 7 with probable impingement of the left C7 nerve root. Spinal cord compression at C3-4, due to the large central disc herniation with associated abnormal cord signal consistent with edema and or myelomalacia. Discussed the findings with Dr. Bergeron, neurosurgery, in [place]. He stated he did not feel like the patient needs acute treatment for his condition. He stated he is not likely a candidate for surgery based on age and there is no medications we can get him in the interim until he seen by Dr. Bergeron in the outpatient clinic. Dr. Bergeron like to see him as an outpatient referral to discuss options. Discussed this with the patient and his and they did not feel like they could get to [place]. We made an appt with Dr. White, neurosurgeon, who comes to [place] from [place], [place]. He requested cervical x-rays, AP/lat/Flex/Ext, which were obtained and showed degenerative changes. The next morning, while I was interviewing him, and shortly after his blood was drawn, his eyes rolled back in his head and he became unresponsive. A rapid response was called. Vitals showed a blood pressure 140/104, heart rate 68, was normal sinus rhythm on telemetry, 93% on room air. His blood glucose was 122. An EKG was done which showed normal sinus rhythm with no changes compared to previous EKG. Troponin was obtained and was negative. A head CT was obtained and showed no acute interval change from CT obtained in ER yesterday, did show age related atrophy, no mass/hemorrhage. During the event the patient was unresponsive, his eyes were open but would not track, he would not respond to name or touch. His pupils were equal and reactive. Eventually he came back, was alert and oriented x 3, speaking normally, following commands, normal strength. He worked with physical therapy who thought her would benefit from strengthening and balance training and should use front wheel walker. The patient has a walker at home. Patient was placed on accuchecks and sliding scale insulin for his diabetes. He was continued on his home meds for his chronic conditions. The patient would benefit from home health as he is homebound. he is unable to ambulate more than 20 feet before needing to stop to rest. He is unsteady when walking and a fall risk. He needs to use a front wheel walker to ambulate safely. He has weakness and deconditioning due to recent fall and recent hospitalization. He would benefit from physical therapy for strengthening, balance training due to gait instability and high fall risk. His primary care provider, Dr. Monsivais, will follow patient for home health once discharged from the hospital. Disposition: Home with home health Discharge Condition: vitals stable, tolerating oral diet, ambulating without difficulty, symptom improvement Discharge Instructions: diabetic diet as tolerated, activity as tolerated, take medications as prescribed. Symptoms to report to physician include fever/chills , chest pain, shortness of breath, abdominal pain, erythema, drainage/discharge , or not improving as expected. Discharge Medications: Aspirin [Alyse Chewable Aspirin] 81 mg PO BEDTIME Lisinopril 2.5 mg PO DAILY metFORMIN HCl [Metformin HCl] 250 mg PO DAILY Follow-up: 1. PCP- Dr. Monsivais 05/29/19 2. Neurosurgery- Dr. White- 06/28/19 - Discharge Data Discharge Date: 05/19/19 Discharge Disposition: Home, W Home Health Agency 06 Condition: Good - Referral to Home Health Date of Face to Face Encounter: 05/19/19 Reason for Homebound Status: The patient would benefit from home health as he is homebound. he is unable to ambulate more than 20 feet before needing to stop to rest. He is unsteady when walking and a fall risk. He needs to use a front wheel walker to ambulate safely. He has weakness and deconditioning due to recent fall and recent hospitalization. He would benefit from physical therapy for strengthening, balance training due to gait instability and high fall risk. His primary care provider, Dr. Monsivais, will follow patient for home health once discharged from the hospital. Primary Care Physician: PCP Yodit Skilled Need: The patient would benefit from home health as he is homebound. he is unable to ambulate more than 20 feet before needing to stop to rest. He is unsteady when walking and a fall risk. He needs to use a front wheel walker to ambulate safely. He has weakness and deconditioning due to recent fall and recent hospitalization. He would benefit from physical therapy for strengthening, balance training due to gait instability and high fall risk. His primary care provider, Dr. Monsivais, will follow patient for home health once discharged from the hospital. - Discharge Diagnosis/Problem(s) (1) Lightheadedness SNOMED Code(s): 187042977 ICD Code: R42 - DIZZINESS AND GIDDINESS Status: Acute Current Visit: Yes (2) Fall at home SNOMED Code(s): 35668807 ICD Code: W19.XXXA - UNSPECIFIED FALL, INITIAL ENCOUNTER; Y92.009 - UNSP PLACE IN UNSP NON-INSTITUT (PRIVATE) RESIDENCE PLACE Status: Acute Current Visit: Yes (3) Cervical radicular pain SNOMED Code(s): 405027396 ICD Code: M54.12 - RADICULOPATHY, CERVICAL REGION Status: Acute Current Visit: Yes (4) Weakness SNOMED Code(s): 37331478 ICD Code: R53.1 - WEAKNESS Status: Acute Current Visit: Yes (5) Unresponsive episode SNOMED Code(s): 909623125 ICD Code: R41.89 - OTH SYMPTOMS AND SIGNS W COGNITIVE FUNCTIONS AND AWARENESS Status: Acute Current Visit: Yes (6) Cervical cord compression with myelopathy SNOMED Code(s): 25027378, 752504990 ICD Code: G95.20 - UNSPECIFIED CORD COMPRESSION Status: Acute Current Visit: Yes - Patient Summary/Data Consults: Consultations 05/17/19 11:13 OT Evaluation and Treatment [CONS] Stat PT Evaluation and Treatment [CONS] Stat - Patient Instructions Diet: Diabetic Diet Activity: As Tolerated Showering/Bathing: May Shower Notify Provider of: Fever, Increased Pain, Swelling and Redness, Drainage, Nausea and/or Vomiting Other/Special Instructions: Additional symptoms include chest pain, shortness of breath, passing out, worsening neck pain, worsening numbness/tinlging in your extremities, or abdominal pain. - Discharge Plan *PRESCRIPTION DRUG MONITORING PROGRAM REVIEWED*: No *COPY OF PRESCRIPTION DRUG MONITORING REPORT IN PATIENT MATTHEW: No Home Medications: Home Meds Aspirin [Alyse Chewable Aspirin] 81 mg PO BEDTIME 03/04/14 [History] Lisinopril 2.5 mg PO DAILY 03/04/14 [History] metFORMIN HCl [Metformin HCl] 250 mg PO DAILY 05/17/19 [History] Patient Handouts: Weakness, [id number], Understanding Your Risk for Falls Referrals: Arcenio Monsivais MD [Physician] - 05/29/19 10:00 am Can White MD [Ordering Only Provider] - 06/28/19 9:30 am (Please arrive at [facility] at 9:15 AM. Please bring all of your hospital paperwork, Hospital Imaging CD, and Insurance Cards.) - Discharge Summary/Plan Comment DC Time >30 min.: No - Patient Data Vitals - Most Recent: Last Vital Signs Temp 97.7 F 05/19/19 04:37 Pulse 69 05/19/19 00:17 Resp 17 05/19/19 00:17 BP 118/71 05/19/19 00:17 Pulse Ox 93 L 05/19/19 00:17 Orthostatic Blood Pressure [ 123/73 Standing] Orthostatic Blood Pressure [ 136/73 Sitting] Orthostatic Blood Pressure [ 140/69 Supine] Weight - Most Recent: 79.379 kg I&O - Last 24 hours: Intake & Output 05/18/19 05/19/19 05/19/19 22:59 06:59 14:59 Intake Total 740 750 Output Total 150 1650 Balance 590 -900 Lab Results - Last 24 hrs: Laboratory Results - last 24 hr 05/18/19 05/18/19 05/18/19 Range/Units 07:15 07:15 07:22 WBC (4.0-11.0) K/uL RBC (4.50-5.90) M/uL Hgb (13.0-17.0) g/dL Hct (38.0-50.0) % MCV (80.0-98.0) fL MCH (27.0-32.0) pg MCHC (31.0-37.0) g/dL RDW Std Deviation (28.0-62.0) fl RDW Coeff of [place] (11.0-15.0) % Plt Count (150-400) K/uL MPV (7.40-12.00) fL Neut % (Auto) (48.0-80.0) % Lymph % (Auto) (16.0-40.0) % Baxter % (Auto) (0.0-15.0) % Eos % (Auto) (0.0-7.0) % Baso % (Auto) (0.0-1.5) % Neut # (Auto) (1.4-5.7) K/uL Lymph # (Auto) (0.6-2.4) K/uL Baxter # (Auto) (0.0-0.8) K/uL Eos # (Auto) (0.0-0.7) K/uL Baso # (Auto) (0.0-0.1) K/uL Nucleated RBC % /100WBC Nucleated RBCs # K/uL Sodium 142 (136-148) mmol/L Potassium 4.5 (3.5-5.1) mmol/L Chloride 106 (98-107) mmol/L Carbon Dioxide 24.1 (21.0-32.0) mmol/L BUN 23 H (7.0-18.0) mg/dL Creatinine 1.1 (0.8-1.3) mg/dL Est Cr Clr Drug Dosing 48.36 mL/min Estimated GFR (MDRD) > 60.0 ml/min Glucose 137 H (74-106) mg/dL POC Glucose 122 H (60-110) mg/dL Calcium 8.5 (8.5-10.1) mg/dL Troponin I < 0.050 (0.000-0.056) ng/mL Urine Color Urine Appearance Urine pH (5.0-8.0) Ur Specific Cool (1.001-1.035) Urine Protein (NEGATIVE) mg/dL Urine Glucose (UA) (NEGATIVE) mg/dL Urine Ketones (NEGATIVE) mg/dL Urine Occult Blood (NEGATIVE) Urine Nitrite (NEGATIVE) Urine Bilirubin (NEGATIVE) Urine Urobilinogen (<2.0) EU/dL Ur Leukocyte Esterase (NEGATIVE) Urine RBC (0-2/HPF) Urine WBC (0-5/HPF) Ur Epithelial Cells (NONE-FEW) Urine Bacteria (NEGATIVE) Urine Mucus (NONE-MOD) 05/18/19 05/18/19 05/18/19 Range/Units 11:33 13:10 16:24 WBC (4.0-11.0) K/uL RBC (4.50-5.90) M/uL Hgb (13.0-17.0) g/dL Hct (38.0-50.0) % MCV (80.0-98.0) fL MCH (27.0-32.0) pg MCHC (31.0-37.0) g/dL RDW Std Deviation (28.0-62.0) fl RDW Coeff of [place] (11.0-15.0) % Plt Count (150-400) K/uL MPV (7.40-12.00) fL Neut % (Auto) (48.0-80.0) % Lymph % (Auto) (16.0-40.0) % Baxter % (Auto) (0.0-15.0) % Eos % (Auto) (0.0-7.0) % Baso % (Auto) (0.0-1.5) % Neut # (Auto) (1.4-5.7) K/uL Lymph # (Auto) (0.6-2.4) K/uL Baxter # (Auto) (0.0-0.8) K/uL Eos # (Auto) (0.0-0.7) K/uL Baso # (Auto) (0.0-0.1) K/uL Nucleated RBC % /100WBC Nucleated RBCs # K/uL Sodium (136-148) mmol/L Potassium (3.5-5.1) mmol/L Chloride (98-107) mmol/L Carbon Dioxide (21.0-32.0) mmol/L BUN (7.0-18.0) mg/dL Creatinine (0.8-1.3) mg/dL Est Cr Clr Drug Dosing mL/min Estimated GFR (MDRD) ml/min Glucose (74-106) mg/dL POC Glucose 150 H 118 H (60-110) mg/dL Calcium (8.5-10.1) mg/dL Troponin I < 0.050 (0.000-0.056) ng/mL Urine Color Urine Appearance Urine pH (5.0-8.0) Ur Specific Cool (1.001-1.035) Urine Protein (NEGATIVE) mg/dL Urine Glucose (UA) (NEGATIVE) mg/dL Urine Ketones (NEGATIVE) mg/dL Urine Occult Blood (NEGATIVE) Urine Nitrite (NEGATIVE) Urine Bilirubin (NEGATIVE) Urine Urobilinogen (<2.0) EU/dL Ur Leukocyte Esterase (NEGATIVE) Urine RBC (0-2/HPF) Urine WBC (0-5/HPF) Ur Epithelial Cells (NONE-FEW) Urine Bacteria (NEGATIVE) Urine Mucus (NONE-MOD) 05/18/19 05/18/19 05/19/19 Range/Units 18:10 20:12 05:56 WBC 10.51 (4.0-11.0) K/uL RBC 4.47 L (4.50-5.90) M/uL Hgb 13.9 (13.0-17.0) g/dL Hct 43.1 (38.0-50.0) % MCV 96.4 (80.0-98.0) fL MCH 31.1 (27.0-32.0) pg MCHC 32.3 (31.0-37.0) g/dL RDW Std Deviation 50.9 (28.0-62.0) fl RDW Coeff of [place] 14 (11.0-15.0) % Plt Count 234 (150-400) K/uL MPV 9.10 (7.40-12.00) fL Neut % (Auto) 64.1 (48.0-80.0) % Lymph % (Auto) 20.6 (16.0-40.0) % Baxter % (Auto) 8.5 (0.0-15.0) % Eos % (Auto) 6.4 (0.0-7.0) % Baso % (Auto) 0.4 (0.0-1.5) % Neut # (Auto) 6.8 H (1.4-5.7) K/uL Lymph # (Auto) 2.2 (0.6-2.4) K/uL Baxter # (Auto) 0.9 H (0.0-0.8) K/uL Eos # (Auto) 0.7 (0.0-0.7) K/uL Baso # (Auto) 0.0 (0.0-0.1) K/uL Nucleated RBC % 0.0 /100WBC Nucleated RBCs # 0 K/uL Sodium (136-148) mmol/L Potassium (3.5-5.1) mmol/L Chloride (98-107) mmol/L Carbon Dioxide (21.0-32.0) mmol/L BUN (7.0-18.0) mg/dL Creatinine (0.8-1.3) mg/dL Est Cr Clr Drug Dosing mL/min Estimated GFR (MDRD) ml/min Glucose (74-106) mg/dL POC Glucose (60-110) mg/dL Calcium (8.5-10.1) mg/dL Troponin I < 0.050 (0.000-0.056) ng/mL Urine Color YELLOW Urine Appearance CLEAR Urine pH 6.0 (5.0-8.0) Ur Specific Cool 1.015 (1.001-1.035) Urine Protein NEGATIVE (NEGATIVE) mg/dL Urine Glucose (UA) NEGATIVE (NEGATIVE) mg/dL Urine Ketones NEGATIVE (NEGATIVE) mg/dL Urine Occult Blood NEGATIVE (NEGATIVE) Urine Nitrite NEGATIVE (NEGATIVE) Urine Bilirubin NEGATIVE (NEGATIVE) Urine Urobilinogen 0.2 (<2.0) EU/dL Ur Leukocyte Esterase NEGATIVE (NEGATIVE) Urine RBC NONE SEEN (0-2/HPF) Urine WBC NONE SEEN (0-5/HPF) Ur Epithelial Cells RARE (NONE-FEW) Urine Bacteria NOT SEEN (NEGATIVE) Urine Mucus LIGHT (NONE-MOD) 09/13/19 09/13/19 Range/Units 05:56 06:04 WBC (4.0-11.0) K/uL RBC (4.50-5.90) M/uL Hgb (13.0-17.0) g/dL Hct (38.0-50.0) % MCV (80.0-98.0) fL MCH (27.0-32.0) pg MCHC (31.0-37.0) g/dL RDW Std Deviation (28.0-62.0) fl RDW Coeff of [place] (11.0-15.0) % Plt Count (150-400) K/uL MPV (7.40-12.00) fL Neut % (Auto) (48.0-80.0) % Lymph % (Auto) (16.0-40.0) % [place] % (Auto) (0.0-15.0) % Eos % (Auto) (0.0-7.0) % Baso % (Auto) (0.0-1.5) % Neut # (Auto) (1.4-5.7) K/uL Lymph # (Auto) (0.6-2.4) K/uL [place] # (Auto) (0.0-0.8) K/uL Eos # (Auto) (0.0-0.7) K/uL Baso # (Auto) (0.0-0.1) K/uL Nucleated RBC % /100WBC Nucleated RBCs # K/uL Sodium 140 (136-148) mmol/L Potassium 4.4 (3.5-5.1) mmol/L Chloride 105 (98-107) mmol/L Carbon Dioxide 25.3 (21.0-32.0) mmol/L BUN 27 H (7.0-18.0) mg/dL Creatinine 1.1 (0.8-1.3) mg/dL Est Cr Clr Drug Dosing 48.36 mL/min Estimated GFR (MDRD) > 60.0 ml/min Glucose 127 H (74-106) mg/dL POC Glucose 112 H (60-110) mg/dL Calcium 10.0 (8.5-10.1) mg/dL Troponin I (0.000-0.056) ng/mL Urine Color Urine Appearance Urine pH (5.0-8.0) Ur Specific Cool (1.001-1.035) Urine Protein (NEGATIVE) mg/dL Urine Glucose (UA) (NEGATIVE) mg/dL Urine Ketones (NEGATIVE) mg/dL Urine Occult Blood (NEGATIVE) Urine Nitrite (NEGATIVE) Urine Bilirubin (NEGATIVE) Urine Urobilinogen (<2.0) EU/dL Ur Leukocyte Esterase (NEGATIVE) Urine RBC (0-2/HPF) Urine WBC (0-5/HPF) Ur Epithelial Cells (NONE-FEW) Urine Bacteria (NEGATIVE) Urine Mucus (NONE-MOD) Med Orders - Current: Current Medications Acetaminophen (Tylenol) 650 mg PO Q4H PRN PRN Reason: Pain/Fever Aspirin (Aspirin) 81 mg PO BEDTIME [facility] Last Admin: 05/18/19 20:34 Dose: 81 mg Insulin Aspart (Novolog) 0 unit SUBCUT TIDAC [facility]; Protocol Last Admin: 05/18/19 16:33 Dose: Not Given Lisinopril (Prinivil) 2.5 mg PO DAILY [facility] Last Admin: 05/18/19 08:46 Dose: 2.5 mg Ondansetron HCl (Zofran) 4 mg IVPUSH Q4H PRN PRN Reason: Nausea/Vomiting Sodium Chloride (Saline Flush) 10 ml FLUSH ASDIRECTED PRN PRN Reason: Keep Vein Open Sodium Chloride (Saline Flush) 2.5 ml FLUSH ASDIRECTED PRN PRN Reason: Keep Vein Open Sodium Chloride (Normal Saline) 10 ml IV ASDIRECTED PRN PRN Reason: IV Use Discontinued Medications Gadobenate Dimeglumine (Multihance) 16 ml IVPUSH ONETIME STA Stop: 05/17/19 13:35 Last Admin: 05/17/19 13:35 Dose: 16 ml <Wang Mann - Last Filed: 05/19/19 09:34> Discharge Summary - Hospital Course HPI Initial Comments: I have seen and examined the patient independently of medical transcription radiology, Dr. Get DO. I have reviewed and agree with the plan of care as outlined for this patient by her. I have discussed the case with her. Please see orders. Home health was ordered. - Referral to Home Health Primary Care Physician: PCP None - Patient Summary/Data Consults: Consultations 05/17/19 11:13 OT Evaluation and Treatment [CONS] Stat PT Evaluation and Treatment [CONS] Stat - Patient Data Vitals - Most Recent: Last Vital Signs Temp 36.6 C 05/19/19 07:49 Pulse 73 05/19/19 07:49 Resp 19 05/19/19 07:49 BP 130/69 05/19/19 08:17 Pulse Ox 95 05/19/19 07:49 Orthostatic Blood Pressure [ 123/73 Standing] Orthostatic Blood Pressure [ 136/73 Sitting] Orthostatic Blood Pressure [ 140/69 Supine] I&O - Last 24 hours: Intake & Output 05/18/19 05/19/19 05/19/19 22:59 06:59 14:59 Intake Total 740 750 Output Total 150 1650 Balance 590 -900 Lab Results - Last 24 hrs: Laboratory Results - last 24 hr 05/18/19 05/18/19 05/18/19 Range/Units 07:22 11:33 13:10 WBC (4.0-11.0) K/uL RBC (4.50-5.90) M/uL Hgb (13.0-17.0) g/dL Hct (38.0-50.0) % MCV (80.0-98.0) fL MCH (27.0-32.0) pg MCHC (31.0-37.0) g/dL RDW Std Deviation (28.0-62.0) fl RDW Coeff of [place] (11.0-15.0) % Plt Count (150-400) K/uL MPV (7.40-12.00) fL Neut % (Auto) (48.0-80.0) % Lymph % (Auto) (16.0-40.0) % Baxter % (Auto) (0.0-15.0) % Eos % (Auto) (0.0-7.0) % Baso % (Auto) (0.0-1.5) % Neut # (Auto) (1.4-5.7) K/uL Lymph # (Auto) (0.6-2.4) K/uL Baxter # (Auto) (0.0-0.8) K/uL Eos # (Auto) (0.0-0.7) K/uL Baso # (Auto) (0.0-0.1) K/uL Nucleated RBC % /100WBC Nucleated RBCs # K/uL Sodium (136-148) mmol/L Potassium (3.5-5.1) mmol/L Chloride (98-107) mmol/L Carbon Dioxide (21.0-32.0) mmol/L BUN (7.0-18.0) mg/dL Creatinine (0.8-1.3) mg/dL Est Cr Clr Drug Dosing mL/min Estimated GFR (MDRD) ml/min Glucose (74-106) mg/dL POC Glucose 122 H 150 H (60-110) mg/dL Calcium (8.5-10.1) mg/dL Troponin I < 0.050 (0.000-0.056) ng/mL Urine Color Urine Appearance Urine pH (5.0-8.0) Ur Specific Cool (1.001-1.035) Urine Protein (NEGATIVE) mg/dL Urine Glucose (UA) (NEGATIVE) mg/dL Urine Ketones (NEGATIVE) mg/dL Urine Occult Blood (NEGATIVE) Urine Nitrite (NEGATIVE) Urine Bilirubin (NEGATIVE) Urine Urobilinogen (<2.0) EU/dL Ur Leukocyte Esterase (NEGATIVE) Urine RBC (0-2/HPF) Urine WBC (0-5/HPF) Ur Epithelial Cells (NONE-FEW) Urine Bacteria (NEGATIVE) Urine Mucus (NONE-MOD) 05/18/19 05/18/19 05/18/19 Range/Units 16:24 18:10 20:12 WBC (4.0-11.0) K/uL RBC (4.50-5.90) M/uL Hgb (13.0-17.0) g/dL Hct (38.0-50.0) % MCV (80.0-98.0) fL MCH (27.0-32.0) pg MCHC (31.0-37.0) g/dL RDW Std Deviation (28.0-62.0) fl RDW Coeff of [place] (11.0-15.0) % Plt Count (150-400) K/uL MPV (7.40-12.00) fL Neut % (Auto) (48.0-80.0) % Lymph % (Auto) (16.0-40.0) % [place] % (Auto) (0.0-15.0) % Eos % (Auto) (0.0-7.0) % Baso % (Auto) (0.0-1.5) % Neut # (Auto) (1.4-5.7) K/uL Lymph # (Auto) (0.6-2.4) K/uL Baxter # (Auto) (0.0-0.8) K/uL Eos # (Auto) (0.0-0.7) K/uL Baso # (Auto) (0.0-0.1) K/uL Nucleated RBC % /100WBC Nucleated RBCs # K/uL Sodium (136-148) mmol/L Potassium (3.5-5.1) mmol/L Chloride (98-107) mmol/L Carbon Dioxide (21.0-32.0) mmol/L BUN (7.0-18.0) mg/dL Creatinine (0.8-1.3) mg/dL Est Cr Clr Drug Dosing mL/min Estimated GFR (MDRD) ml/min Glucose (74-106) mg/dL POC Glucose 118 H (60-110) mg/dL Calcium (8.5-10.1) mg/dL Troponin I < 0.050 (0.000-0.056) ng/mL Urine Color YELLOW Urine Appearance CLEAR Urine pH 6.0 (5.0-8.0) Ur Specific Cool 1.015 (1.001-1.035) Urine Protein NEGATIVE (NEGATIVE) mg/dL Urine Glucose (UA) NEGATIVE (NEGATIVE) mg/dL Urine Ketones NEGATIVE (NEGATIVE) mg/dL Urine Occult Blood NEGATIVE (NEGATIVE) Urine Nitrite NEGATIVE (NEGATIVE) Urine Bilirubin NEGATIVE (NEGATIVE) Urine Urobilinogen 0.2 (<2.0) EU/dL Ur Leukocyte Esterase NEGATIVE (NEGATIVE) Urine RBC NONE SEEN (0-2/HPF) Urine WBC NONE SEEN (0-5/HPF) Ur Epithelial Cells RARE (NONE-FEW) Urine Bacteria NOT SEEN (NEGATIVE) Urine Mucus LIGHT (NONE-MOD) 05/19/19 05/19/19 05/19/19 Range/Units 05:56 05:56 06:04 WBC 10.51 (4.0-11.0) K/uL RBC 4.47 L (4.50-5.90) M/uL Hgb 13.9 (13.0-17.0) g/dL Hct 43.1 (38.0-50.0) % MCV 96.4 (80.0-98.0) fL MCH 31.1 (27.0-32.0) pg MCHC 32.3 (31.0-37.0) g/dL RDW Std Deviation 50.9 (28.0-62.0) fl RDW Coeff of [place] 14 (11.0-15.0) % Plt Count 234 (150-400) K/uL MPV 9.10 (7.40-12.00) fL Neut % (Auto) 64.1 (48.0-80.0) % Lymph % (Auto) 20.6 (16.0-40.0) % [place] % (Auto) 8.5 (0.0-15.0) % Eos % (Auto) 6.4 (0.0-7.0) % Baso % (Auto) 0.4 (0.0-1.5) % Neut # (Auto) 6.8 H (1.4-5.7) K/uL Lymph # (Auto) 2.2 (0.6-2.4) K/uL Baxter # (Auto) 0.9 H (0.0-0.8) K/uL Eos # (Auto) 0.7 (0.0-0.7) K/uL Baso # (Auto) 0.0 (0.0-0.1) K/uL Nucleated RBC % 0.0 /100WBC Nucleated RBCs # 0 K/uL Sodium 140 (136-148) mmol/L Potassium 4.4 (3.5-5.1) mmol/L Chloride 105 (98-107) mmol/L Carbon Dioxide 25.3 (21.0-32.0) mmol/L BUN 27 H (7.0-18.0) mg/dL Creatinine 1.1 (0.8-1.3) mg/dL Est Cr Clr Drug Dosing 48.36 mL/min Estimated GFR (MDRD) > 60.0 ml/min Glucose 127 H (74-106) mg/dL POC Glucose 112 H (60-110) mg/dL Calcium 10.0 (8.5-10.1) mg/dL Troponin I (0.000-0.056) ng/mL Urine Color Urine Appearance Urine pH (5.0-8.0) Ur Specific Cool (1.001-1.035) Urine Protein (NEGATIVE) mg/dL Urine Glucose (UA) (NEGATIVE) mg/dL Urine Ketones (NEGATIVE) mg/dL Urine Occult Blood (NEGATIVE) Urine Nitrite (NEGATIVE) Urine Bilirubin (NEGATIVE) Urine Urobilinogen (<2.0) EU/dL Ur Leukocyte Esterase (NEGATIVE) Urine RBC (0-2/HPF) Urine WBC (0-5/HPF) Ur Epithelial Cells (NONE-FEW) Urine Bacteria (NEGATIVE) Urine Mucus (NONE-MOD) Med Orders - Current: Current Medications Acetaminophen (Tylenol) 650 mg PO Q4H PRN PRN Reason: Pain/Fever Aspirin (Aspirin) 81 mg PO BEDTIME [facility] Last Admin: 05/18/19 20:34 Dose: 81 mg Insulin Aspart (Novolog) 0 unit SUBCUT TIDAC [facility]; Protocol Last Admin: 05/19/19 07:51 Dose: Not Given Lisinopril (Prinivil) 2.5 mg PO DAILY [facility] Last Admin: 05/19/19 08:17 Dose: 2.5 mg Ondansetron HCl (Zofran) 4 mg IVPUSH Q4H PRN PRN Reason: Nausea/Vomiting Sodium Chloride (Saline Flush) 10 ml FLUSH ASDIRECTED PRN PRN Reason: Keep Vein Open Sodium Chloride (Saline Flush) 2.5 ml FLUSH ASDIRECTED PRN PRN Reason: Keep Vein Open Sodium Chloride (Normal Saline) 10 ml IV ASDIRECTED PRN PRN Reason: IV Use Discontinued Medications Gadobenate Dimeglumine (Multihance) 16 ml IVPUSH ONETIME STA Stop: 05/17/19 13:35 Last Admin: 05/17/19 13:35 Dose: 16 ml
[2019-05-19] MEDS: Insulin Aspart 100 Units/ML 3 ML Pen SUBCUT SCH (07:51)
[2019-05-19] MEDS: Lisinopril 5 MG Tab PO SCH (08:17)
== END 2019-05-19 09:49 | disposition home health service (06) ==
LOC: MW.ED 09:54 → MW.MS 11:23
PROVIDERS: ADMIT Internal Medicine; ATTEND Internal Medicine
DX: R53.1 Weakness (principal); R42 Dizziness and giddiness; M48.02 Spinal stenosis, cervical region; M50.01 Cervical disc disorder with myelopathy, high cervical region; M50.11 Cervical disc disorder with radiculopathy, high cervical region; E11.9 Type 2 diabetes mellitus without complications; R41.89 Other symptoms and signs involving cognitive functions and awareness; W19.XXXA Unspecified fall, initial encounter; Y92.009 Unspecified place in unspecified non-institutional (private) residence as the place of occurrence of the external cause; Z88.5 Allergy status to narcotic agent; Z79.82 Long term (current) use of aspirin; Z79.84 Long term (current) use of oral hypoglycemic drugs; Z79.899 Other long term (current) drug therapy
CPT/HCPCS: 36415; 70450; 72052; 72141; 80048; 80053; 81001; 82962; 84443; 84484; 85025; 85610; 85730; 93005; 97161; 97530; 99285; A9270; A9577; J1815; G0378

== ENCOUNTER 2019-06-12 11:59 | Observation (INO) | payer MEDICARE ==
--- NOTE | 2019-06-12 12:09 | EDM.PDOC ---
ED HPI GENERAL MEDICAL PROBLEM - General Chief Complaint: Back Pain or Injury Stated Complaint: BACK PAIN Time Seen by Provider: 06/12/19 12:00 Source of Information: Reports: Patient History Limitations: Reports: No Limitations - History of Present Illness INITIAL COMMENTS - FREE TEXT/NARRATIVE: HISTORY AND PHYSICAL: History of present illness: Patient is an 84-year-old male who presents to the emergency room by ambulance with complaints of chronic neck and back pain. Patient has had a long-standing history of chronic neck and back discomfort. He has had multiple imaging completed of the cervical spine and does have extensive degenerative disc disease. He recently saw Dr. Arcenio Monsivais at [facility] and was prescribed homecare and physical/occupational therapy. He states that he has been getting the services at home but feels that his pain has not been managed. He states "they won't give me anything for pain". He denies any new injury, trauma or falls. He states that he called and ambulance today as he was not able to get up " get in the car", lives at home with his . He does have a follow-up appointment with Dr. Duffy with [facility] on 06/28/2019 for further care/management. Patient denies any fever, chills, headache, change in vision, syncope or near syncope. Denies any chest pain, back pain, shortness of breath or cough. Denies any abdominal pain, nausea, vomiting, diarrhea, constipation or dysuria. Has not noted any blood in urine or stool. Patient has been eating and drinking appropriately. Review of systems: As per history of present illness and below otherwise all systems reviewed and negative. Past medical history: As per history of present illness and as reviewed below otherwise noncontributory. Surgical history: As per history of present illness and as reviewed below otherwise noncontributory. Social history: See social history for further information Family history: As per history of present illness and as reviewed below otherwise noncontributory. Physical exam: General: Well-developed and well-nourished 84-year-old male. Alert and oriented. Nontoxic appearing and in no acute distress. HEENT: Atraumatic, normocephalic, pupils equal and reactive bilaterally, negative for conjunctival pallor or scleral icterus, mucous membranes moist, TMs normal bilaterally, throat clear, neck supple, nontender, trachea midline. No drooling or trismus noted. No meningeal signs. No hot potato voice noted. Lungs: Clear to auscultation, breath sounds equal bilaterally, chest nontender. Heart: S1S2, regular rate and rhythm without overt murmur Abdomen: Soft, nondistended, nontender. Negative for masses or hepatosplenomegaly. Negative for costovertebral tenderness. Pelvis: Stable nontender. C-spine/Back: No pinpoint vertebral tenderness upon palpation. No crepitus, step -offs or obvious deformities. Patient is ambulatory into the emergency room without difficulty or deficit. Able to rock back on heels and walk on toes. Denies any urinary or fecal incontinence. Denies any numbness, tingling or saddle paresthesia. Skin: Intact, warm, dry. No lesions or rashes noted. Extremities: Atraumatic, moves all extremities per self without difficulty or deficits, negative for cords or calf pain. Neurovascular unremarkable. Neuro: Awake, alert, oriented. Cranial nerves II through XII unremarkable. Cerebellum unremarkable. Motor and sensory unremarkable throughout. Exam nonfocal. 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 Moderate degenerative spinal canal stenosis. Multilevel neural foraminal stenosis most severe at C6-7, with probable impingement at the left C7 nerve root. Spinal cord compression at C3-4 due to large central disc herniation. surgical services manager was contacted to assist the patient with outpatient care/ services available to them. Dr Bergeron, Neurosurgeon at [facility], was consulted on this case. I was able to review the patient's past MRI with the surgeon. He states that this patient is not a candidate for surgery and would not see him in his practice. He recommends that the patient have pain management and follow up with primary care for this concern. This information was shared with the patient and , they are disgruntled and are requesting to be admitted for pain management. Dr. Mann was consulted on this case. Dr Mann is here talking with the patient talking about admission versus transfer versus follow-up options. Patient was offered admission, patient is agreeable. Diagnostics: Refuses Therapeutics: Tramadol, Prednisone, Saline Lock Impression: Chronic neck and back pain Degenerative disc disease Self care deficit Encounter for pain management Plan: Observation admission Definitive disposition and diagnosis as appropriate pending reevaluation and review of above. Right Leg Pain Score (Numeric/FACES): 10 - Related Data Allergies Allergy/AdvReac Type Severity Reaction Status Date / Time codeine Allergy Mild Nausea and Verified 06/12/19 12:06 Vomiting Home Meds: Home Meds Aspirin [Alyse Chewable Aspirin] 81 mg PO BEDTIME 03/04/14 [History] Lisinopril 2.5 mg PO DAILY 03/04/14 [History] metFORMIN HCl [Metformin HCl] 250 mg PO DAILY 05/17/19 [History] traMADol [Ultram] 50 mg PO BID PRN #15 tab 06/12/19 [Rx] Past Medical History - Past Health History Medical/Surgical History: Denies Medical/Surgical History HEENT History: Reports: None Cardiovascular History: Reports: None, Other (See Below) Other Cardiovascular History: HTN with Anxiety Respiratory History: Reports: None Other Respiratory History: Hx of Sinus Infections Gastrointestinal History: Reports: None Genitourinary History: Reports: Prostate Disorder Musculoskeletal History: Reports: None Neurological History: Reports: None Psychiatric History: Reports: None Endocrine/Metabolic History: Reports: Diabetes, Type II Hematologic History: Reports: None Immunologic History: Reports: None Oncologic (Cancer) History: Reports: None, Prostate Dermatologic History: Reports: None - Past Surgical History Head Surgeries/Procedures: Reports: None HEENT Surgical History: Reports: None Cardiovascular Surgical History: Reports: None Respiratory Surgical History: Reports: None GI Surgical History: Reports: None Male Surgical History: Reports: None Endocrine Surgical History: Reports: None Neurological Surgical History: Reports: None Musculoskeletal Surgical History: Reports: None Oncologic Surgical History: Reports: None Dermatological Surgical History: Reports: None Social & Family History - Family History Family Medical History: Noncontributory - Caffeine Use Caffeine Use: Reports: Coffee ED ROS GENERAL - Review of Systems Review Of Systems: ROS reveals no pertinent complaints other than HPI. ED EXAM, UPPER BACK/NECK PAIN - Physical Exam Exam: See Below (See dictation) Course - Vital Signs Last Recorded V/S: Last Vital Signs Temp 97 F 06/12/19 12:06 Pulse 84 06/12/19 12:06 Resp 22 H 06/12/19 12:06 BP 100/68 06/12/19 12:06 Pulse Ox 96 06/12/19 12:06 - Orders/Labs/Meds Orders: Active Orders 24 hr Category Date Time Status predniSONE Med 06/12/19 12:24 Once 20 mg PO ONETIME ONE traMADol [Ultram] Med 06/12/19 12:13 Once 50 mg PO ONETIME ONE Medication Orders Prednisone (Prednisone) 20 mg PO ONETIME ONE Stop: 06/12/19 12:25 Last Admin: 06/12/19 12:28 Dose: 20 mg Tramadol HCl (Ultram) 50 mg PO ONETIME ONE Stop: 06/12/19 12:14 Last Admin: 06/12/19 12:27 Dose: 50 mg Meds: Medications Generic Name Dose Route Start Last Admin Trade Name Freq PRN Reason Stop Dose Admin Prednisone 20 mg 06/12/19 12:24 06/12/19 12:28 Prednisone PO 06/12/19 12:25 20 mg ONETIME ONE Administration Tramadol HCl 50 mg 06/12/19 12:13 06/12/19 12:27 Ultram PO 06/12/19 12:14 50 mg ONETIME ONE Administration Departure - Departure Time of Disposition: 13:30 Disposition: Refer to Observation Clinical Impression: Pain management, Degenerative disc disease, cervical, Chronic neck pain - Discharge Information Prescriptions: traMADol [Ultram] 50 mg PO BID PRN #15 tab PRN Reason: Pain Referrals: PCP,None [Primary Care Provider] - Forms: ED Department Discharge - My Orders Last 24 Hours: My Active Orders 06/12/19 12:13 traMADol [Ultram] 50 mg PO ONETIME ONE 06/12/19 12:24 predniSONE 20 mg PO ONETIME ONE - Assessment/Plan Last 24 Hours: My Active Orders 06/12/19 12:13 traMADol [Ultram] 50 mg PO ONETIME ONE 06/12/19 12:24 predniSONE 20 mg PO ONETIME ONE
[2019-06-12] MEDS ORDERED: traMADol 50 MG Tab PO ONE (12:13)
[2019-06-12] MEDS ORDERED: predniSONE 20 MG Tab PO ONE (12:24)
[2019-06-12] MEDS ORDERED: Sodium Chloride 0.9% 10 ML Syringe FLUSH PRN ×2 (13:47→13:48)
[2019-06-12] MEDS ORDERED: Sodium Chloride 0.9% 2.5 ML Syringe FLUSH PRN ×2 (13:47→13:48)
[2019-06-12] MEDS ORDERED: Docusate Sodium 100 MG Cap PO PRN (13:48)
[2019-06-12] MEDS ORDERED: Morphine 2 MG/ML Syringe IVPUSH PRN (13:48)
--- NOTE | 2019-06-12 13:52 | PCM.HP.2 ---
H&P History of Present Illness - General Date of Service: 06/12/19 Admit Problem/Dx: Admission Diagnosis/Problem Admission Diagnosis/Problem Pain management Source of Information: Patient History Limitations: Reports: No Limitations - History of Present Illness Initial Comments - Free Text/Narative: The patient is an 84-year-old gentleman who had presented to the emergency department complaining of severe intractable pain in his neck and inability to ambulate. The patient was previously in the hospital on May 17, 2019 secondary to a fall and associated weakness. The patient had a CT scan which showed severe cervical stenosis with cord impingement and subsequent myelopathy. A CT scan was obtained on May 17, 2019 showed severe degenerative central canal stenosis at C3, C4 and C5 and compressive deformity of the spinal cord. He had multilevel neural foraminal stenosis severe on the left at C6 and C7. The patient has an appointment on June 28, 2019 with neurosurgery. The patient today says that the pain is so severe he is unable to move and any medication and he has been taking has not been helpful. The patient has had no specific aggravating or relieving factors although movement makes his pain much worse. Onset of Symptoms: Reports: Gradual Duration of Symptoms: Reports: Week(s):, Getting Worse Location: Reports: Neck Quality: Reports: Sharp, Stabbing, Throbbing Severity: Severe Improves with: Reports: None Worsens with: Reports: Movement Associated Symptoms: Reports: No Other Symptoms Right Leg Pain Score (Numeric/FACES): 10 Neck Pain Score (Numeric/FACES): 6 - Related Data Allergies/Adverse Reactions: Allergies Allergy/AdvReac Type Severity Reaction Status Date / Time codeine Allergy Mild Nausea and Verified 06/12/19 16:43 Vomiting Home Medications: Home Meds Aspirin [Alyse Chewable Aspirin] 81 mg PO BEDTIME 03/04/14 [History] Lisinopril 2.5 mg PO DAILY 03/04/14 [History] metFORMIN HCl [Metformin HCl] 250 mg PO DAILY 05/17/19 [History] Past Medical History - Past Health History Medical/Surgical History: Denies Medical/Surgical History HEENT History: Reports: None Cardiovascular History: Reports: None, Other (See Below) Other Cardiovascular History: HTN with Anxiety Respiratory History: Reports: None Other Respiratory History: Hx of Sinus Infections Gastrointestinal History: Reports: None Genitourinary History: Reports: Prostate Disorder Musculoskeletal History: Reports: None Neurological History: Reports: None Psychiatric History: Reports: None Endocrine/Metabolic History: Reports: Diabetes, Type II Hematologic History: Reports: None Immunologic History: Reports: None Oncologic (Cancer) History: Reports: None, Prostate Dermatologic History: Reports: None - Past Surgical History Head Surgeries/Procedures: Reports: None HEENT Surgical History: Reports: None Cardiovascular Surgical History: Reports: None Respiratory Surgical History: Reports: None GI Surgical History: Reports: None Male Surgical History: Reports: None Endocrine Surgical History: Reports: None Neurological Surgical History: Reports: None Musculoskeletal Surgical History: Reports: None Oncologic Surgical History: Reports: None Dermatological Surgical History: Reports: None Social & Family History - Family History Family Medical History: Noncontributory - Tobacco Use Smoking Status *Q: Never Smoker Second Hand Smoke Exposure: No - Caffeine Use Caffeine Use: Reports: Coffee - Recreational Drug Use Recreational Drug Use: No - Living Situation & Occupation Living situation: Reports: , with Spouse Occupation: Retired H&P Review of Systems - Review of Systems: Review Of Systems: See Below General: Reports: Weakness, Fatigue HEENT: Reports: Hearing Changes Pulmonary: Reports: No Symptoms Cardiovascular: Reports: No Symptoms Gastrointestinal: Reports: No Symptoms Genitourinary: Reports: No Symptoms Musculoskeletal: Reports: Neck Pain, Other Skin: Reports: No Symptoms Psychiatric: Reports: No Symptoms Neurological: Reports: No Symptoms Hematologic/Lymphatic: Reports: No Symptoms Immunologic: Reports: No Symptoms Exam - Exam Exam: See Below - Vital Signs Vital Signs: Last Vital Signs Temp 36.4 C 06/12/19 13:35 Pulse 90 06/12/19 13:35 Resp 18 06/12/19 13:35 BP 106/69 06/12/19 13:35 Pulse Ox 96 06/12/19 13:35 Weight: 72.575 kg - Exam Quality Assessment: No: Supplemental Oxygen General: Alert, Oriented, Cooperative, Moderate Distress HEENT: Conjunctiva Clear, EACs Clear, EOMI. No: Hearing Intact, Mucosa Moist & [place] (Dry) Neck: Supple, Trachea Midline Lungs: Clear to Auscultation, Normal Respiratory Effort Cardiovascular: Regular Rate, Regular Rhythm GI/Abdominal Exam: Normal Bowel Sounds, Soft, No Distention Back Exam: Other (Tender posterior neck) Skin: Warm, Dry, Intact Neurological: Cranial Nerves Intact Neuro Extensive - Mental Status: Alert, Oriented x3 Neuro Extensive - Motor, Sensory, Reflexes: CN II-XII Intact Psychiatric: Alert, Normal Affect, Normal Mood - Patient Data Result Diagrams: 06/12/19 15:35 06/12/19 15:35 - Problem List (1) Chronic neck pain SNOMED Code(s): 4236054583575 ICD Code: M54.2 - CERVICALGIA; G89.29 - OTHER CHRONIC PAIN Status: Chronic Priority: High Current Visit: Yes (2) Degenerative disc disease, cervical SNOMED Code(s): 09458177 ICD Code: M50.30 - OTHER CERVICAL DISC DEGENERATION, UNSP CERVICAL REGION Status: Chronic Priority: High Current Visit: Yes (3) Pain management SNOMED Code(s): 132459535 ICD Code: R52 - PAIN, UNSPECIFIED Status: Chronic Priority: High Current Visit: Yes (4) Weakness SNOMED Code(s): 50678792 ICD Code: R53.1 - WEAKNESS Status: Acute Current Visit: No Problem List Initiated/Reviewed/Updated: Yes Orders Last 24hrs: Active Orders 24 hr Category Date Time Status Patient Status [ADT] Stat ADT 06/12/19 13:47 Active Blood Glucose Check, Bedside [RC] TIDMEALS Care 06/12/19 13:48 Ordered Diabetes Education [RC] Click to Edit Care 06/12/19 13:49 Ordered Oxygen Therapy [RC] PRN Care 06/12/19 13:48 Ordered Up With Assistance [RC] ASDIRECTED Care 06/12/19 13:48 Ordered VTE/DVT Education [RC] PER UNIT ROUTINE Care 06/12/19 13:48 Ordered Vital Signs [RC] Q4H Care 06/12/19 13:48 Ordered OT Evaluation and Treatment [CONS] Routine Cons 06/12/19 13:48 Ordered PT Evaluation and Treatment [CONS] Routine Cons 06/12/19 13:48 Ordered Consistent Carbohydrate Diet [DIET] Diet 06/12/19 Dinner Ordered CBC WITH AUTO DIFF [HEME] AM Lab 06/13/19 05:11 Ordered COMPREHENSIVE METABOLIC PN,CMP [CHEM] AM Lab 06/13/19 05:11 Ordered Docusate Sodium [Colace] Med 06/12/19 13:48 Ordered 100 mg PO BID PRN Heparin Sodium Med 06/12/19 14:00 Ordered 5,000 units SUBCUT Q8H Insulin Aspart [NovoLOG] Med 06/12/19 17:00 Ordered See Protocol SUBCUT TIDAC Lisinopril [Prinivil] Med 06/13/19 09:00 Ordered 2.5 mg PO DAILY Morphine Med 06/12/19 13:48 Ordered 2 mg IVPUSH Q2H PRN Sodium Chloride 0.9% [Saline Flush] Med 06/12/19 13:47 Active 10 ml FLUSH ASDIRECTED PRN Sodium Chloride 0.9% [Saline Flush] Med 06/12/19 13:48 Ordered 10 ml FLUSH ASDIRECTED PRN Sodium Chloride 0.9% [Saline Flush] Med 06/12/19 13:47 Active 2.5 ml FLUSH ASDIRECTED PRN Sodium Chloride 0.9% [Saline Flush] Med 06/12/19 13:48 Ordered 2.5 ml FLUSH ASDIRECTED PRN metFORMIN [Glucophage] Med 06/13/19 09:00 Ordered 250 mg PO DAILY oxyCODONE Med 06/12/19 13:48 Ordered 5 mg PO Q4H PRN Glucose Management Sub Q Reflex [OM.PC] Click To Edit Oth 06/12/19 13:48 Ordered Saline Lock Insert [OM.PC] Routine Oth 06/12/19 13:48 Ordered Saline Lock Insert [OM.PC] Stat Oth 06/12/19 13:47 Ordered Resuscitation Status Routine Resus Stat 06/12/19 13:48 Ordered Medication Orders Lisinopril (Prinivil) 2.5 mg PO DAILY JEREMY Metformin HCl (Glucophage) 250 mg PO DAILY JEREMY Sodium Chloride (Saline Flush) 10 ml FLUSH ASDIRECTED PRN PRN Reason: Keep Vein Open Sodium Chloride (Saline Flush) 2.5 ml FLUSH ASDIRECTED PRN PRN Reason: Keep Vein Open Assessment/Plan Comment:: The patient has pain that is related to his cervical stenosis. He has not gotten any relief from an outpatient medications. As a result of this the patient will be admitted for observation predominantly for pain control. The patient has been given morphine and oxycodone for pain control and this seems to help. I find to the patient that the options remain the same as that we're not able to do much for him other than pain control with regards to his cervical stenosis. The patient does have an appointment with neurosurgeon on June 28, 2019. Repeat laboratory studies have been ordered. If the patient is doing better and his pain is been significantly improved he'll be appropriate for discharge in the morning. The patient be kept on his current diet as tolerated. Therapy has been ordered. The patient will also have DVT prophylaxis with the use of Lovenox. - Mortality Measure Prognosis:: Good
[2019-06-12] MEDS ORDERED: Pneumococcal 23-Valent Conjugate Vaccine 0.5 ML Syringe IM ONE (14:36)
[2019-06-12] MEDS: Heparin Sodium 5,000 Units/ML Vial SUBCUT SCH ×2 (16:02→23:01)
[2019-06-12 16:12] LABS: BLOOD UREA NITROGEN,BUN 21 mg/dL (7.0-18.0); CARBON DIOXIDE,CO2 24.1 mmol/L (21.0-32.0); CHLORIDE,CL 100 mmol/L (98-107); GLUCOSE RANDOM 99 mg/dL (74-106); POTASSIUM,K 4.4 mmol/L (3.5-5.1); SODIUM,NA 136 mmol/L (136-148)
[2019-06-12] MEDS: Insulin Aspart 100 Units/ML 3 ML Pen SUBCUT SCH (17:39)
[2019-06-12] MEDS: oxyCODONE 5 MG Tab PO PRN (20:46)
[2019-06-13] MEDS: oxyCODONE 5 MG Tab PO PRN ×4 (02:10→14:11)
[2019-06-13] MEDS: Heparin Sodium 5,000 Units/ML Vial SUBCUT SCH ×2 (06:10→13:51)
[2019-06-13] MEDS: Insulin Aspart 100 Units/ML 3 ML Pen SUBCUT SCH ×2 (06:33→13:16)
[2019-06-13 07:08] LABS: BLOOD UREA NITROGEN,BUN 22 mg/dL (7.0-18.0); CARBON DIOXIDE,CO2 28.1 mmol/L (21.0-32.0); CHLORIDE,CL 100 mmol/L (98-107); GLUCOSE RANDOM 116 mg/dL (74-106); POTASSIUM,K 5.3 mmol/L (3.5-5.1); SODIUM,NA 135 mmol/L (136-148)
[2019-06-13] MEDS ORDERED: Lisinopril 5 MG Tab PO SCH (09:00)
[2019-06-13] MEDS ORDERED: metFORMIN 500 MG Tab PO SCH (09:00)
--- NOTE | 2019-06-13 10:39 | PCM.DCSUM1 ---
Discharge Summary - Hospital Course Diagnosis: Stroke: No - Discharge Data Discharge Date: 06/13/19 Discharge Disposition: DC/Tfer to Acute Hospital 02 Condition: Fair - Referral to Home Health Primary Care Physician: PCP None - Discharge Diagnosis/Problem(s) (1) Chronic neck pain SNOMED Code(s): 2772546315946 ICD Code: M54.2 - CERVICALGIA; G89.29 - OTHER CHRONIC PAIN Status: Chronic Priority: High Current Visit: Yes (2) Degenerative disc disease, cervical SNOMED Code(s): 43199103 ICD Code: M50.30 - OTHER CERVICAL DISC DEGENERATION, UNSP CERVICAL REGION Status: Chronic Priority: High Current Visit: Yes (3) Pain management SNOMED Code(s): 123997122 ICD Code: R52 - PAIN, UNSPECIFIED Status: Chronic Priority: High Current Visit: Yes (4) Weakness SNOMED Code(s): 01633946 ICD Code: R53.1 - WEAKNESS Status: Acute Current Visit: No - Patient Summary/Data Consults: Consultations 06/12/19 13:48 OT Evaluation and Treatment [CONS] Routine PT Evaluation and Treatment [CONS] Routine Hospital Course: The patient is an 84-year-old gentleman who had been admitted to acute hospitalization yesterday after presentation to the emergency department. He been complaining of severe intractable pain in his neck and inability to ambulate. Patient was previously in the hospital on 05/17/2019 due to falls and associated weakness. 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 The patient had tried multiple pain medications as an outpatient and he was admitted primarily for pain management. The patient has a follow-up with visiting neurosurgeon on June 28, 2019 and both he and his say that he is unable to make that appointment secondary to the pain. The patient had been prescribed morphine and oxycodone and this seems to work for him. He also had been complaining of numbness and tingling of his hands as well as weakness in his lower extremities and the patient has reported falling due to severe weakness. Once the patient's pain has been adequately controlled he is been considered for transfer to tertiary care center for neurosurgical services are available. The patient will be kept on appropriate diabetic diet. The patient did have Accu-Cheks before meals and at bedtime to help optimize his diabetes. I have discussed the case with neurosurgeon, Dr. Bergeron, who has reviewed the films and has agreed to accept patient. The patient will be sent to [facility] emergency room for admission and further evaluation. - Patient Instructions Diet: Heart Healthy Diet Activity: As Tolerated - Discharge Plan *PRESCRIPTION DRUG MONITORING PROGRAM REVIEWED*: No *COPY OF PRESCRIPTION DRUG MONITORING REPORT IN PATIENT MATTHEW: No Home Medications: Home Meds Lisinopril 2.5 mg PO DAILY 03/04/14 [History] metFORMIN HCl [Metformin HCl] 250 mg PO DAILY 05/17/19 [History] oxyCODONE 5 mg PO Q4H PRN tablet 06/13/19 [Rx] Oxygen Therapy Mode: Room Air Forms: ED Department Discharge Referrals: PCP,None [Primary Care Provider] - - Discharge Summary/Plan Comment DC Time >30 min.: Yes - General Info Date of Service: 06/13/19 Admission Dx/Problem (Free Text: Admission Diagnosis/Problem Admission Diagnosis/Problem Pain management Subjective Update: The patient's pain is better controlled today. Functional Status: Reports: Pain Controlled - Review of Systems General: Reports: Weakness, Malaise HEENT: Reports: No Symptoms Pulmonary: Reports: No Symptoms Cardiovascular: Reports: No Symptoms Gastrointestinal: Reports: No Symptoms Genitourinary: Reports: No Symptoms Musculoskeletal: Reports: Neck Pain, Leg Pain Skin: Reports: No Symptoms Neurological: Reports: Numbness, Tingling, Difficulty Walking, Weakness Psychiatric: Reports: No Symptoms - Patient Data Vitals - Most Recent: Last Vital Signs Temp 37 C 06/13/19 07:33 Pulse 73 06/13/19 07:33 Resp 14 06/13/19 07:33 BP 114/64 06/13/19 08:00 Pulse Ox 94 L 06/13/19 07:33 Weight - Most Recent: 72.575 kg I&O - Last 24 hours: Intake & Output 06/12/19 06/13/19 06/13/19 22:59 06:59 14:59 Intake Total 100 540 Output Total 575 Balance 100 -35 Lab Results - Last 24 hrs: Laboratory Results - last 24 hr 06/12/19 06/12/19 06/12/19 Range/Units 15:35 15:35 17:27 WBC 14.31 H (4.0-11.0) K/uL RBC 4.28 L (4.50-5.90) M/uL Hgb 13.5 (13.0-17.0) g/dL Hct 40.9 (38.0-50.0) % MCV 95.6 (80.0-98.0) fL MCH 31.5 (27.0-32.0) pg MCHC 33.0 (31.0-37.0) g/dL RDW Std Deviation 48.4 (28.0-62.0) fl RDW Coeff of [place] 14 (11.0-15.0) % Plt Count 267 (150-400) K/uL MPV 8.80 (7.40-12.00) fL Neut % (Auto) 83.1 H (48.0-80.0) % Lymph % (Auto) 8.0 L (16.0-40.0) % [place] % (Auto) 7.4 (0.0-15.0) % Eos % (Auto) 1.3 (0.0-7.0) % Baso % (Auto) 0.2 (0.0-1.5) % Neut # (Auto) 11.9 H (1.4-5.7) K/uL Lymph # (Auto) 1.1 (0.6-2.4) K/uL [place] # (Auto) 1.1 H (0.0-0.8) K/uL Eos # (Auto) 0.2 (0.0-0.7) K/uL Baso # (Auto) 0.0 (0.0-0.1) K/uL Nucleated RBC % 0.0 /100WBC Nucleated RBCs # 0 K/uL Sodium 136 (136-148) mmol/L Potassium 4.4 (3.5-5.1) mmol/L Chloride 100 (98-107) mmol/L Carbon Dioxide 24.1 (21.0-32.0) mmol/L BUN 21 H (7.0-18.0) mg/dL Creatinine 1.1 (0.8-1.3) mg/dL Est Cr Clr Drug Dosing 48.36 mL/min Estimated GFR (MDRD) > 60.0 ml/min Glucose 99 (74-106) mg/dL POC Glucose 171 H (60-110) mg/dL Calcium 9.1 (8.5-10.1) mg/dL Total Bilirubin 0.9 (0.2-1.0) mg/dL AST 24 (15-37) IU/L ALT 37 (14-63) IU/L Alkaline Phosphatase 71 (46-116) U/L Total Protein 6.8 (6.4-8.2) g/dL Albumin 3.4 (3.4-5.0) g/dL Globulin 3.4 (2.6-4.0) g/dL Albumin/Globulin Ratio 1.0 (0.9-1.6) 06/12/19 06/13/19 06/13/19 Range/Units 20:28 06:12 06:33 WBC 12.23 H (4.0-11.0) K/uL RBC 4.17 L (4.50-5.90) M/uL Hgb 13.0 (13.0-17.0) g/dL Hct 39.9 (38.0-50.0) % MCV 95.7 (80.0-98.0) fL MCH 31.2 (27.0-32.0) pg MCHC 32.6 (31.0-37.0) g/dL RDW Std Deviation 48.8 (28.0-62.0) fl RDW Coeff of [place] 14 (11.0-15.0) % Plt Count 271 (150-400) K/uL MPV 8.80 (7.40-12.00) fL Neut % (Auto) 71.8 (48.0-80.0) % Lymph % (Auto) 16.5 (16.0-40.0) % [place] % (Auto) 10.2 (0.0-15.0) % Eos % (Auto) 1.3 (0.0-7.0) % Baso % (Auto) 0.2 (0.0-1.5) % Neut # (Auto) 8.8 H (1.4-5.7) K/uL Lymph # (Auto) 2.0 (0.6-2.4) K/uL [place] # (Auto) 1.3 H (0.0-0.8) K/uL Eos # (Auto) 0.2 (0.0-0.7) K/uL Baso # (Auto) 0.0 (0.0-0.1) K/uL Nucleated RBC % 0.0 /100WBC Nucleated RBCs # 0 K/uL Sodium (136-148) mmol/L Potassium (3.5-5.1) mmol/L Chloride (98-107) mmol/L Carbon Dioxide (21.0-32.0) mmol/L BUN (7.0-18.0) mg/dL Creatinine (0.8-1.3) mg/dL Est Cr Clr Drug Dosing mL/min Estimated GFR (MDRD) ml/min Glucose (74-106) mg/dL POC Glucose 158 H 119 H (60-110) mg/dL Calcium (8.5-10.1) mg/dL Total Bilirubin (0.2-1.0) mg/dL AST (15-37) IU/L ALT (14-63) IU/L Alkaline Phosphatase (46-116) U/L Total Protein (6.4-8.2) g/dL Albumin (3.4-5.0) g/dL Globulin (2.6-4.0) g/dL Albumin/Globulin Ratio (0.9-1.6) 06/13/19 Range/Units 06:33 WBC (4.0-11.0) K/uL RBC (4.50-5.90) M/uL Hgb (13.0-17.0) g/dL Hct (38.0-50.0) % MCV (80.0-98.0) fL MCH (27.0-32.0) pg MCHC (31.0-37.0) g/dL RDW Std Deviation (28.0-62.0) fl RDW Coeff of [place] (11.0-15.0) % Plt Count (150-400) K/uL MPV (7.40-12.00) fL Neut % (Auto) (48.0-80.0) % Lymph % (Auto) (16.0-40.0) % [place] % (Auto) (0.0-15.0) % Eos % (Auto) (0.0-7.0) % Baso % (Auto) (0.0-1.5) % Neut # (Auto) (1.4-5.7) K/uL Lymph # (Auto) (0.6-2.4) K/uL [place] # (Auto) (0.0-0.8) K/uL Eos # (Auto) (0.0-0.7) K/uL Baso # (Auto) (0.0-0.1) K/uL Nucleated RBC % /100WBC Nucleated RBCs # K/uL Sodium 135 L (136-148) mmol/L Potassium 5.3 H (3.5-5.1) mmol/L Chloride 100 (98-107) mmol/L Carbon Dioxide 28.1 (21.0-32.0) mmol/L BUN 22 H (7.0-18.0) mg/dL Creatinine 1.1 (0.8-1.3) mg/dL Est Cr Clr Drug Dosing 48.36 mL/min Estimated GFR (MDRD) > 60.0 ml/min Glucose 116 H (74-106) mg/dL POC Glucose (60-110) mg/dL Calcium 8.7 (8.5-10.1) mg/dL Total Bilirubin 0.7 (0.2-1.0) mg/dL AST 33 (15-37) IU/L ALT 36 (14-63) IU/L Alkaline Phosphatase 62 (46-116) U/L Total Protein 6.6 (6.4-8.2) g/dL Albumin 3.1 L (3.4-5.0) g/dL Globulin 3.5 (2.6-4.0) g/dL Albumin/Globulin Ratio 0.9 (0.9-1.6) Med Orders - Current: Current Medications Docusate Sodium (Colace) 100 mg PO BID PRN PRN Reason: Constipation Last Admin: 06/12/19 21:01 Dose: 100 mg Heparin Sodium (Porcine) (Heparin Sodium) 5,000 units SUBCUT Q8H [facility] Last Admin: 06/13/19 06:10 Dose: 5,000 units Insulin Aspart (Novolog) 0 unit SUBCUT TIDAC [facility]; Protocol Last Admin: 06/13/19 06:33 Dose: Not Given Lisinopril (Prinivil) 2.5 mg PO DAILY [facility] Last Admin: 06/13/19 08:00 Dose: 2.5 mg Metformin HCl (Glucophage) 250 mg PO DAILY [facility] Last Admin: 06/13/19 08:00 Dose: 250 mg Morphine Sulfate (Morphine) 2 mg IVPUSH Q2H PRN PRN Reason: Pain (severe 7-10) Stop: 06/13/19 13:49 Last Admin: 06/12/19 16:06 Dose: 2 mg Oxycodone HCl (Oxycodone) 5 mg PO Q4H PRN PRN Reason: Pain (moderate 4-6) Last Admin: 06/13/19 10:08 Dose: 5 mg Sodium Chloride (Saline Flush) 10 ml FLUSH ASDIRECTED PRN PRN Reason: Keep Vein Open Sodium Chloride (Saline Flush) 2.5 ml FLUSH ASDIRECTED PRN PRN Reason: Keep Vein Open Sodium Chloride (Saline Flush) 10 ml FLUSH ASDIRECTED PRN PRN Reason: Keep Vein Open Sodium Chloride (Saline Flush) 2.5 ml FLUSH ASDIRECTED PRN PRN Reason: Keep Vein Open Discontinued Medications Influenza Virus Vaccine (Fluzone High-Dose 2019-20 Syringe) 180 mcg IM ONETIME ONE Stop: 06/12/19 14:37 Pneumococcal Polyvalent Vaccine (Pneumovax 23) 25 mcg IM .ONCE ONE Stop: 06/12/19 14:37 Prednisone (Prednisone) 20 mg PO ONETIME ONE Stop: 06/12/19 12:25 Last Admin: 06/12/19 12:28 Dose: 20 mg Tramadol HCl (Ultram) 50 mg PO ONETIME ONE Stop: 06/12/19 12:14 Last Admin: 06/12/19 12:27 Dose: 50 mg - Exam Quality Assessment: Denies: Supplemental Oxygen General: Reports: Alert, Oriented, Cooperative, Mild Distress HEENT: Reports: Pupils Equal, Pupils Reactive, EOMI, Mucous Membr. Moist/[place] Neck: Reports: Supple, Trachea Midline Lungs: Reports: Clear to Auscultation, Normal Respiratory Effort Cardiovascular: Reports: Regular Rate, Regular Rhythm GI/Abdominal Exam: Normal Bowel Sounds, Soft, No Distention Back Exam: Denies: Normal Inspection (Unable to set up), Full Range of Motion ( Unable to set up) Extremities: Normal Inspection Skin: Reports: Warm, Dry, Intact Neurological: Denies: Normal Gait, Normal Tone, Strength Equal Bilateral Psy/Mental Status: Reports: Alert, Normal Affect, Normal Mood
== END 2019-06-13 14:30 ==
LOC: MW.ED 11:59 → MW.MS 13:54
PROVIDERS: ADMIT Internal Medicine; ATTEND Internal Medicine
DX: M54.2 Cervicalgia (principal); M48.02 Spinal stenosis, cervical region; M50.30 Other cervical disc degeneration, unspecified cervical region; R53.1 Weakness; E11.9 Type 2 diabetes mellitus without complications; Z88.5 Allergy status to narcotic agent; Z79.82 Long term (current) use of aspirin; Z79.899 Other long term (current) drug therapy; Z79.84 Long term (current) use of oral hypoglycemic drugs
CPT/HCPCS: 36415; 80053; 82962; 85025; 96372; 96374; 99284; A9270; G0378; J1644; J1815; J2270